=== PATIENT | female | born 1975 | race Caucasian/White ===

== ENCOUNTER 2016-08-17 09:30 | Observation (INO) | payer SELFPAY ==
[~2016-08-17] VITALS: Ht 177.8 cm; Wt 87.0 kg
[~2016-08-17 09:30] MED LIST: ACET650T24 PO; PROC-14 PO
--- OUTSIDE RECORDS SUMMARY | 2016-08-17 09:34 | XMS REPORT | Continuity of Care Document ---
Author Author [facility] Organization [facility] Address Unknown Phone Unavailable Allergies Medications Problems Procedures Results Test Result Range CHEM/HEM PROFILE-BEDSIDE - 10/27/12 15:33 POTASSIUM 4.2 mmol/L 3.5-5.3 METHOD Bedside ANION GAP 16 mmol/L 10-20 METHOD Bedside GLUCOSE 83 mg/dL 70-99 BLOOD UREA NITROGEN 8 mg/dL 7-20 CREATININE 0.9 mg/dL 0.6-1.0 HEMOGLOBIN 14.3 gm/dL 12.0-16.0 HEMATOCRIT 42.0 % 37.0-47.0 SODIUM 143 mmol/L 135-148 CHLORIDE 108 mmol/L 98-110 CARBON DIOXIDE 24 mmol/L 21-32 CALCIUM IONIZED 5.0 mg/dL 4.5-5.3 CBC W/DIFF - 10/27/12 15:35 BASOPHIL # 0.1 k/cumm 0.0-0.2 BASOPHIL % 1 % 0-1 EOSINOPHIL # 0.4 k/cumm 0.1-0.5 EOSINOPHIL % 3 % 2-4 GRANULOCYTE # 6.7 k/cumm 2.0-9.0 GRANULOCYTE % 62 % 50-75 LYMPHOCYTE # 2.9 k/cumm 1.0-4.0 LYMPHOCYTE % 26 % 20-30 MEAN CELL HGB 31.3 pg 27.0-33.0 MEAN CELL HGB CONCENTRATION 33.1 g/dL 32.0-37.0 MEAN CELL VOLUME 94.6 fl 80.0-100.0 MONOCYTE # 0.9 k/cumm 0.1-1.0 MONOCYTE % 8 % 4-6 RED BLOOD CELL 4.79 m/cumm 4.00-6.00 RED CELL DISTRIBUTION WIDTH 12.8 % 11.0- 15.6 WHITE BLOOD CELL 10.9 k/cumm 5.0-10.0 HEMOGLOBIN 15.0 gm/dL 12.0-16.0 HEMATOCRIT 45.3 % 37.0-47.0 PLATELET COUNT 272 k/cumm 150-400 HEPATIC FUNCTION PANEL - 10/27/12 15:35 BILI UNCONJUGATED 0.1 mg/dL 0.0-0.7 AST/SGOT 18 Units/L 10-37 ALT/SGPT 36 Units/L < 66 TOTAL PROTEIN 7.7 gm/dL 6.4-8.2 ALBUMIN 3.8 gm/dL 3.4-5.0 BILI TOTAL 0.2 mg/dL 0.0-1.0 ALKALINE PHOSPHATASE TOTAL 93 Units/L 50- 136 BILI CONJUGATED 0.0 mg/dL 0.0-0.3 LIPASE - 10/27/12 15:35 LIPASE 136 Units/L 73-393 URINALYSIS, ROUTINE - 10/27/12 15:45 UA LEUKOCYTE ESTERASE DIPSTICK TRACE NEGATIVE UA NITRITE DIPSTICK NEGATIVE NEGATIVE UA PROTEIN DIPSTICK NEGATIVE NEGATIVE UA GLUCOSE DIPSTICK NEGATIVE NEGATIVE UA KETONE DIPSTICK NEGATIVE NEGATIVE UA UROBILINOGEN DIPSTICK NORMAL NORMAL UA BILIRUBIN DIPSTICK NEGATIVE NEGATIVE UA BLOOD DIPSTICK NEGATIVE NEGATIVE UA COMMENT UA SPECIFIC GRAVITY 1.010 1.015-1.025 UR PH 5.0 5.0-7.0 Encounters ACCT No. Visit Date/Time Discharge Status Pt. Type Provider Facility Loc./Unit Complaint [id number] 10/27/2012 18:30:00 2012 18:30:00 DIS Outpatient Niki ESCALONA, [id number]
--- OUTSIDE RECORDS SUMMARY | 2016-08-17 09:35 | XMS REPORT | Continuity of Care Document ---
Author Author [facility] Organization [facility] Address Unknown Phone Unavailable Support Name Relationship Address Phone ALAYNA WIGGINS MD Caregiver [facility] [address] [place] [address] Unavailable LM TURCIOS MD Caregiver [address] [place], [place] [id number] BARB BECERRA Next Of Kin [address] [place] [address] Insurance Providers Payer Name Policy Number Subscriber Name Relationship Self Pay Melida Redmond 18 Self Advance Directives Directive Response Recorded Date/Time Advanced Directives Type None 05/22/14 2:00am Problems Medical Problems Problem Onset Date Status Anxiety Unknown Active Chest wall pain Unknown Active Stress reaction Unknown Active Medications Medication Dose Route Sig Days/Qty Instructions Order Date Discontinued Date Status [No Routine Meds] 01/20/08 06/18/08 Discontinued Acetaminophen 500 Mg PO NEEDED 06/29/09 10/09/09 Discontinued [Aleve] NEEDED 06/18/08 06/24/09 Discontinued Ibuprofen 200 Mg PO NEEDED 06/25/09 06/29/09 Discontinued [Tums] NEEDED 06/29/09 10/09/09 Discontinued Hydrocodone Bit/Acetaminophen 1 - 2 Tab PO Q 4-6 HOURS PRN 06/29/09 10/09/09 Discontinued Ondansetron Hcl 1 Tab PO Q 8 H PRN 06/16/09 06/24/09 Discontinued Ibuprofen 1 Tab PO NEEDED 06/29/09 10/09/09 Discontinued Ondansetron Hcl 1 Tab PO NEEDED 06/29/09 10/09/09 Discontinued Oxycodone Hcl 1 Tab PO NEEDED 06/29/09 10/09/09 Discontinued Phentermine Hcl 1 Cap PO DAILY 10/09/09 01/24/10 Discontinued [Ibuprofen] NEEDED 01/24/10 07/21/10 Discontinued [Tylenol] NEEDED 01/24/10 07/21/10 Discontinued Ibuprofen PO NEEDED 12/02/10 09/08/11 Discontinued Hydrocodone Bit/Acetaminophen PO 05/01/11 09/08/11 Discontinued [pristique] 06/12/11 09/08/11 Discontinued [no daily meds] 05/22/14 Active Social History Social History Problem Response Recorded Date/Time Chewing Tobacco Status No 05/22/2014 2:00am Hx Substance Use N NOT FOR SEVERAL YEARS 05/22/2014 2:00am Hx Alcohol Use Y VERY INFREQUENTLY 05/22/2014 2:00am Tobacco Usage smoke 05/22/2014 2:26am Query Response Start Date Stop Date Smoking Status Current every day smoker Hospital Discharge Instructions No hospital discharge instructions. Plan of Care No plan of care. Functional Status Query Response Date Recorded Physical Hygiene Self May 22, 2014 2:00am Disabilities None May 22, 2014 2:00am Devices Used None May 22, 2014 2:00am Dressing Self May 22, 2014 2:00am Ambulation Self May 22, 2014 2:00am Diet Self May 22, 2014 2:00am Mental Status Alert May 22, 2014 4:40am Disabilities None May 22, 2014 2:00am Devices Used None May 22, 2014 2:00am Physical Hygiene Self May 22, 2014 2:00am Dressing Self May 22, 2014 2:00am Ambulation Self May 22, 2014 2:00am Diet Self May 22, 2014 2:00am Allergies, Adverse Reactions, Alerts Allergen Type Severity Reaction Status Last Updated No Known Drug Allergies Allergy Unknown Active 06/03/12 Immunizations Name Given Type Hx Influenza Vaccination No Historical Hx Pneumococcal Vaccination No Historical Hx Influenza Vaccination No Historical Hx Tetanus Diptheria Y 2 YEARS AGO Historical Vital Signs Acute Vital Signs Vital Response Date/Time Temperature (Fahrenheit) 98.2 deg F (96.8 - 99.1) Temperature (Calculated Celsius) 36.21131 degrees C (36.0 - 37.3) Pulse Rate (adult) 88 bpm (60 - 100) Respiratory Rate 16 breaths/min (10 - 20) O2 Sat by Pulse Oximetry 100 % (90 - 100) Blood Pressure 102/59 mm Hg Height 5 ft 10 in Weight 259 lb Body Mass Index 37.0 kg/m^2 Results Test Source Date Result Interp. Ref. Range Comments Activated Partial Thromboplast Time December 02, 2010 11:15am 28.0 SEC N 24-36 Alanine Aminotransferase (ALT/SGPT) May 22, 2014 2:33am 33 U/L N 9- 52 Albumin May 22, 2014 2:33am 4.3 G/DL N 3.5-5.0 Albumin/Globulin Ratio May 22, 2014 2:33am 1.3 RATIO N 1.1-2.2 Alcohol, Quantitative December 02, 2010 11:15am <10 MG/DL - Alkaline Phosphatase May 22, 2014 2:33am 79 U/L N 38-126 Amylase Level June 03, 2012 2:35pm 80 U/L N 30-110 Anion Gap May 22, 2014 2:33am 12 MEQ/L N 5-15 Aspartate Amino Transf (AST/SGOT) May 22, 2014 2:33am 16 U/L N 14- 36 B-Type Natriuretic Peptide December 02, 2010 11:15am < 15 PG/ML L 15- 100 BUN/Creatinine Ratio May 22, 2014 2:33am 13 RATIO N 6-26 Band Neutrophils # November 08, 2011 2:10pm 0.2 T/MM3 - Band Neutrophils % November 08, 2011 2:10pm 2.0 % N 0-6 Basophils # (Auto) May 22, 2014 2:33am 0.1 T/MM3 N 0-0.2 Basophils # (Manual) November 08, 2011 2:10pm 0.1 T/MM3 N 0-0.2 Basophils % (Manual) November 08, 2011 2:10pm 1.0 % N 0-2 Basophils (%) (Auto) May 22, 2014 2:33am 0.7 % N 0-2 Blood Urea Nitrogen May 22, 2014 2:33am 13.0 MG/DL N 7-17 Calcium Level May 22, 2014 2:33am 9.9 MG/DL N 8.4-10.2 Calculated Osmolality May 22, 2014 2:33am 276 MOSM/KG N 261-280 Carbon Dioxide Level May 22, 2014 2:33am 24 MEQ/L N 22-30 Chemistry Specimen Hemolysis May 22, 2014 2:33am 0-25 Chlamydia trachomatis Amplified DNA June 16, 2009 10:13pm Sent out - Chloride Level May 22, 2014 2:33am 107 MEQ/L N 98-107 Cholesterol Level August 10, 2009 11:45am 211 MG/DL H 132-199 Cholesterol/HDL Ratio August 10, 2009 11:45am 5.9 RATIO H 0-4.0 Conjugated Bilirubin June 03, 2012 2:35pm 0.00 MG/DL N 0.00-0.30 Creatinine May 22, 2014 2:33am 1.0 MG/DL N 0.7-1.2 D-Dimer June 03, 2012 2:35pm < 150 NG/ML 0-230 <224 NG/ML= PRESUMPTIVE NEGATIVE FOR PE OR DVT>224 NG/ML=ADDITIONAL EVALUATION FOR PE OR DVT RECOMMENDED EKG March 01, 2009 7:54pm Complete - Eosinophils # (Auto) May 22, 2014 2:33am 0.2 T/MM3 N 0-0.5 Eosinophils # (Manual) November 08, 2011 2:10pm 0.1 T/MM3 N 0-0.5 Eosinophils % (Manual) November 08, 2011 2:10pm 1.0 % N 0-4 Eosinophils (%) (Auto) May 22, 2014 2:33am 2.2 % N 0-4 Free Thyroxine December 02, 2010 11:15am 1.01 NG/DL N 0.78-2.19 Globulin May 22, 2014 2:33am 3.4 G/DL N 2.4-3.6 Glomerular Filtration Rate Calc May 22, 2014 2:33am 63 - Glucose Level May 22, 2014 2:33am 118 MG/DL H 65-110 HDL Cholesterol Direct August 10, 2009 11:45am 36 MG/DL L 40-60 Hematocrit May 22, 2014 2:33am 45.9 % N 36-46 Hemoglobin May 22, 2014 2:33am 15.7 GM/DL N 12-16 Human Chorionic Gonadotropin, Qual May 07, 2008 12:28pm Negative - Icterus Index May 22, 2014 2:33am < 2 0-7 Immature Granulocyte # (Auto) May 22, 2014 2:33am 0.02 T/MM3 N 0.00 -0.03 Immature Granulocyte % (Auto) May 22, 2014 2:33am 0.2 % N 0.0-0.5 Influenza Type A Antigen June 12, 2011 9:35pm Negative - Negative for Flu A protein antigen. Assay sensitivity isbetween 65-83%. A negative result does not exclude influenza virus infection. "Influenza FA" may be ordered if clinical presentation warrants confirmatory testing. Influenza Type B Antigen June 12, 2011 9:35pm Negative - Negative for Flu B protein antigen. Assay sensitivity isbetween 65-83%. A negative result does not exclude influenza virus infection. "Influenza FA" may be ordered if clinical presentation warrants confirmatory testing. LDL Cholesterol, Calculated August 10, 2009 11:45am 149.0 N 66-159 Lab Scanned Report March 28, 2011 11:02am REFERENCE LAB [id number] - Lipase June 03, 2012 2:35pm 62 U/L N 23-300 Lymphocytes # (Auto) May 22, 2014 2:33am 3.6 T/MM3 N 1-4.8 Lymphocytes # (Manual) November 08, 2011 2:10pm 2.5 T/MM3 N 1-4.8 Lymphocytes % (Manual) November 08, 2011 2:10pm 26.0 % N 23-45 Lymphocytes (%) (Auto) May 22, 2014 2:33am 33.3 % N 23-45 Mean Corpuscular Hemoglobin May 22, 2014 2:33am 31.8 UUG N 26-34 Mean Corpuscular Hemoglobin Concent May 22, 2014 2:33am 34.2 GM/DL N 31-37 Mean Corpuscular Volume May 22, 2014 2:33am 93.1 UM3 N 80-100 Mean Platelet Volume May 22, 2014 2:33am 9.9 UM3 N 9.4-12.4 Monocytes # (Auto) May 22, 2014 2:33am 1.2 T/MM3 H 0-0.8 Monocytes # (Manual) November 08, 2011 2:10pm 1.1 T/MM3 H 0-0.8 Monocytes % (Manual) November 08, 2011 2:10pm 11.0 % H 0-9.0 Monocytes (%) (Auto) May 22, 2014 2:33am 11.3 % H 0-9.0 Neutrophils # (Auto) May 22, 2014 2:33am 5.6 T/MM3 N 1.8-7.7 Neutrophils # (Manual) November 08, 2011 2:10pm 5.7 T/MM3 N 1.8-7.7 Neutrophils % (Manual) November 08, 2011 2:10pm 59.0 % N 33-66 Neutrophils (%) (Auto) May 22, 2014 2:33am 52.3 % N 33-66 Platelet Count May 22, 2014 2:33am 293 T/MM3 N 130-400 Potassium Level May 22, 2014 2:33am 3.8 MEQ/L N 3.6-5 Prothromb Time International Ratio December 02, 2010 11:15am 1.01 N 0.86-1.10 THERAPUTIC RANGE=2.00-3.00 FOR ANTI-THROMBOSIS THERAPUTIC RANGE=2.50 -3.50 FOR IMPLANTED VALVE RDW Standard Deviation May 22, 2014 2:33am 41.9 FL N 36.9-50.2 Red Blood Count May 22, 2014 2:33am 4.93 M/MM3 N 4.00-5.20 Sodium Level May 22, 2014 2:33am 143 MEQ/L N 134-144 Tests Not Done June 29, 2009 3:44pm Not done - Has specimen been collected/obtained? Y Thyroid Stimulating Hormone (TSH) December 02, 2010 11:15am 2.22 MIU/L N 0.47-4.68 Total Bilirubin May 22, 2014 2:33am 0.50 MG/DL N 0.20-1.30 Total Protein May 22, 2014 2:33am 7.7 G/DL N 6.3-8.2 Triglycerides Level August 10, 2009 11:45am 130 MG/DL N 35-135 Troponin I May 22, 2014 2:33am < 0.012 ng/ml 0-0.12 Turbidity May 22, 2014 2:33am < 20 0-20 Unconjugated Bilirubin June 03, 2012 2:35pm 0.00 MG/DL N 0.00-1.10 Urine Acetaminophen Screen December 02, 2010 12:30pm Negative NG/ML - Urine Amphetamines Screen December 02, 2010 12:30pm Negative NG/ML - Urine Bacteria June 12, 2011 10:50pm Trace H - Has specimen been collected/obtained? Y Urine Barbiturates Screen December 02, 2010 12:30pm Negative NG/ML - Urine Benzodiazepines Screen December 02, 2010 12:30pm Negative NG/ML - Urine Bilirubin June 03, 2012 3:16pm Negative - Has specimen been collected/obtained? Y Urine Blood June 03, 2012 3:16pm Negative - Has specimen been collected/obtained? Y Urine Cannabinoids Screen December 02, 2010 12:30pm Negative NG/ML - Urine Cocaine Screen December 02, 2010 12:30pm Negative NG/ML - Urine Collection Type June 03, 2012 3:16pm Voided - Has specimen been collected/obtained? Y Urine Color June 03, 2012 3:16pm Yellow - Has specimen been collected/obtained? Y Urine Glucose (UA) June 03, 2012 3:16pm Negative - Has specimen been collected/obtained? Y Urine Ketones June 03, 2012 3:16pm Negative - Has specimen been collected/obtained? Y Urine Leukocyte Esterase June 03, 2012 3:16pm Negative - Has specimen been collected/obtained? Y Urine Methadone Screen December 02, 2010 12:30pm Negative NG/ML - Urine Methamphetamines Screen December 02, 2010 12:30pm Negative NG/ML - Urine Microscopic Not Indicated November 08, 2011 2:00pm Not indicated - Has specimen been collected/obtained? Y Urine Nitrite June 03, 2012 3:16pm Negative - Has specimen been collected/obtained? Y Urine Opiates Screen December 02, 2010 12:30pm Negative NG/ML - Urine Phencyclidine Screen December 02, 2010 12:30pm Negative NG/ML - Urine Protein June 03, 2012 3:16pm Negative - Has specimen been collected/obtained? Y Urine RBC June 12, 2011 10:50pm 0-1 /HPF - Has specimen been collected/obtained? Y Urine Specific [place] June 03, 2012 3:16pm 1.015 - Has specimen been collected/obtained? Y Urine Squamous Epithelial Cells June 12, 2011 10:50pm Few - Has specimen been collected/obtained? Y Urine Tricyclic Antidepressants December 02, 2010 12:30pm Negative NG/ML - Urine Turbidity June 03, 2012 3:16pm Clear - Has specimen been collected/obtained? Y Urine Urobilinogen June 03, 2012 3:16pm Normal EU/DL - Has specimen been collected/obtained? Y Urine WBC June 12, 2011 10:50pm 0-1 /HPF - Has specimen been collected/obtained? Y Urine pH June 03, 2012 3:16pm 5.0 - Has specimen been collected/ obtained? Y VLDL Cholesterol August 10, 2009 11:45am 26.0 MG/DL N 0-28 White Blood Count May 22, 2014 2:33am 10.7 T/MM3 N 4.5-11.0 Blood Culture Blood June 12, 2011 8:38pm NO GROWTH AFTER 5 DAYS Wet Prep Vagina November 08, 2011 3:40pm Procedures No known history of procedures. Encounters Encounter Location Date/Time Departed Emergency Room [facility] 05/22/14 1:59am Recent Diagnosis
--- OUTSIDE RECORDS SUMMARY | 2016-08-17 09:35 | XMS REPORT | Referral Summary ---
Author Author [facility] Organization [facility] Address Unknown Phone Unavailable Care Team Providers [employer] Name Role Phone No PCP, States Primary Care Physician [phone] Encounter VC Date(s): 04/21/16 - 04/21/16 [facility] [address] [place] [address] Discharge Diagnosis: Urinary tract infection Discharge Diagnosis: Migraine headache Discharge Disposition: 01-Home or Self Care Attending Physician: Clay Hu MD Admitting Physician: Clay Hu MD Vital Signs Most recent to 1 oldest [Reference Range]: Temperature Oral 36.8 degC [35.8-37.3 degC] (04/21/16 5:13 PM) Peripheral Pulse 62 bpm Rate [60-100 bpm] (04/21/16 5:13 PM) Respiratory Rate 20 br/min [14-20 br/min] (04/21/16 5:13 PM) Blood Pressure 128/84 mmHg [90-140/60-90 mmHg] (04/21/16 5:13 PM) SpO2 98 % (04/21/16 5:13 PM) Problem List Condition Effective Dates Status Health Status Informant Depression(Confirmed Resolved )1 gastro-esoph reflux Resolved with esophageal spasms(Confirmed) headaches - Resolved migraine(Confirmed)2 Obesity(Confirmed) Active patient Overweight(Confirmed Resolved ) 1depressive disorder, not elsewhere classified 2migraine w/aura w/o mention intractable migraine Allergies, Adverse Reactions, Alerts No Known Medication Allergies Medications Bactrim DS 800 mg-160 mg oral tablet 1 tabs, Oral, BID, X 7 days, # 14 tabs, 0 Refill(s) Start Date: 04/21/16 Stop Date: 04/28/16 Status: Ordered meloxicam 15 mg oral tablet 15 mg 1 tabs, Oral, Daily, # 30 tabs, 0 Refill(s), Pharmacy: [id number], 1 tabs Oral Daily Start Date: 02/10/15 Status: Ordered Percocet 5/325 oral tablet 1 tabs, Oral, q6hr, as needed for pain, # 15 tabs, 0 Refill(s) Start Date: 12/09/15 Status: Ordered promethazine 25 mg oral tablet 25 mg 1 tabs, Oral, q6hr, as needed for motion sickness, X 4 days, # 16 tabs, 0 Refill(s) Start Date: 04/21/16 Stop Date: 04/25/16 Status: Ordered Results Hematology Most recent to 1 oldest [Reference Range]: WBC [4.8-10.8 8.4 10*3/uL 10*3/uL] (04/21/16 8:10 PM) RBC [4.00-5.20] 4.14 (04/21/16 8:10 PM) Hgb [12.0-16.0 13.1 gm/dL gm/dL] (04/21/16 8:10 PM) Hct [37.0-47.0 %] 39.5 % (04/21/16 8:10 PM) MCV [82.0-99.0 fL] 95.4 fL (04/21/16 8:10 PM) MCH [27.0-32.0 pg] 31.6 pg (04/21/16 8:10 PM) MCHC [32.0-36.0 33.2 gm/dL gm/dL] (04/21/16 8:10 PM) RDW [11.5-14.5 %] 13.1 % (04/21/16 8:10 PM) Platelet [150-400 261 10*3/uL 10*3/uL] (04/21/16 8:10 PM) MPV [9.4-12.4 fL] 9.2 fL *LOW* (04/21/16 8:10 PM) Immature 0.2 % Granulocytes (04/21/16 8:10 PM) [0.0-1.0 %] Neutrophils [51-75 49 % %] *LOW* (04/21/16 8:10 PM) Lymphocytes [20-46 38 % %] (04/21/16 8:10 PM) Monocytes [4-11 %] 9 % (04/21/16 8:10 PM) Eosinophils [0-4 %] 3 % (04/21/16 8:10 PM) Basophils [0-2 %] 1 % (04/21/16 8:10 PM) Neutro Absolute 4.10 [1.90-7.00] (04/21/16 8:10 PM) Lymph Absolute 3.18 [0.80-3.30] (04/21/16 8:10 PM) Barron Absolute 0.77 [0.30-1.00] (04/21/16 8:10 PM) Eos Absolute 0.24 [0.00-0.50] (04/21/16 8:10 PM) Baso Absolute 0.07 [0.00-0.20] (04/21/16 8:10 PM) Nucleated RBC 0.0 /100 WBC Automated [0 /100 (04/21/16 8:10 PM) WBC] Chemistry Most recent to 1 oldest [Reference Range]: Sodium Lvl [136-144 139 mEq/L mEq/L] (04/21/16 8:10 PM) Potassium Lvl 3.5 mEq/L [3.6-5.1 mEq/L] *LOW* (04/21/16 8:10 PM) Chloride [99-109 106 mEq/L mEq/L] (04/21/16 8:10 PM) CO2 [22-32 mEq/L] 29 mEq/L (04/21/16 8:10 PM) AGAP [3-20] 4 (04/21/16 8:10 PM) BUN [4-20 mg/dL] 5 mg/dL (04/21/16 8:10 PM) Glucose Lvl [70-100 90 mg/dL mg/dL] (04/21/16 8:10 PM) Creatinine Lvl 0.78 mg/dL [0.44-1.03 mg/dL] (04/21/16 8:10 PM) eGFR [>60] >60 1 (04/21/16 8:10 PM) Calcium Lvl 9.1 mg/dL [8.6-10.0 mg/dL] (04/21/16 8:10 PM) Albumin Lvl [3.5-4.8 3.2 gm/dL gm/dL] *LOW* (04/21/16 8:10 PM) Total Protein 5.9 gm/dL [6.1-7.9 gm/dL] *LOW* (04/21/16 8:10 PM) Globulin [1.9-4.3 2.7 gm/dL gm/dL] (04/21/16 8:10 PM) ALT [14-54 U/L] 15 U/L (04/21/16 8:10 PM) AST [15-41 U/L] 12 U/L *LOW* (04/21/16 8:10 PM) Alk Phos [26-104 52 U/L U/L] (04/21/16 8:10 PM) Bili Total [0.2-1.2 0.2 mg/dL 2 mg/dL] (04/21/16 8:10 PM) 1Result Comment: Multiply eGFR results by 1.21 for race. 2Result Comment: Naproxen, specifically the metabolite O-desmethylnaproxen, may cause spurious elevation in Total Bilirubin levels. Toxicology Most recent to 1 oldest [Reference Range]: U Amphetamine Scrn Negative (04/21/16 8:10 PM) U Cocaine Scrn Negative (04/21/16 8:10 PM) U Cannab Scrn Negative (04/21/16 8:10 PM) U Opiate Scrn Negative (04/21/16 8:10 PM) U PCP Scrn Negative (04/21/16 8:10 PM) U Benzodiazepine Negative Scrn (04/21/16 8:10 PM) U Barbiturate Scrn Negative (04/21/16 8:10 PM) Methadone Lvl Negative (04/21/16 8:10 PM) Tricyclics Not Detected 1 (04/21/16 8:10 PM) 1Result Comment: Cut-off concentrations: Amphetamines: 1000 ng/mL Cocaine: 300 ng/mL Cannabinoid: 50 ng/mL Opiate: 300 ng/mL Phencyclidine (PCP): 25 ng/mL Benzodiazepine: 200 ng/mL Barbiturate: 200 ng/mL Methadone: 300 ng/mL Tricyclic: 300 ng/mL The urine drug screen assays are qualitative screens. A more specific GC/MS method must be performed to obtain a confirmed analytical result. Unconfirmed screening results must not be used for non-medical purposes(e.g. employment or legal testing) Urinalysis Most recent to 1 oldest [Reference Range]: UA Color Yellow (04/21/16 8:10 PM) UA Appear Cloudy *ABN* (04/21/16 8:10 PM) UA pH [5.0-8.0] 5.0 (04/21/16 8:10 PM) UA Leuk Est Pos 3+ [Negative] *ABN* (04/21/16 8:10 PM) UA Nitrite Positive [Negative] *ABN* (04/21/16 8:10 PM) UA Protein Negative [Negative] (04/21/16 8:10 PM) UA Glucose Negative [Negative] (04/21/16 8:10 PM) UA Ketones Negative [Negative] (04/21/16 8:10 PM) UA Urobilinogen Negative [<1.0] (04/21/16 8:10 PM) UA Bili [Negative] Negative (04/21/16 8:10 PM) UA Blood [Negative] Negative (04/21/16 8:10 PM) UA Spec Grav 1.015 [1.003-1.030] (04/21/16 8:10 PM) Type Clean Catch (04/21/16 8:10 PM) UA WBC [0-4] 20-50 *ABN* (04/21/16 8:10 PM) Epithelial Cells 0-2 (04/21/16 8:10 PM) UA Bacteria Moderate *ABN* (04/21/16 8:10 PM) UA Mucous Present (04/21/16 8:10 PM) Immunizations Given and Recorded Vaccine Date Status Refusal Reason tetanus-diphth toxoids (Td) adult/adol 03/27/03 Given Procedures Procedure Date Related Diagnosis Body Site Hysterectomy 04/03/08 Gallbladder Social History Social History Type Response Smoking Status Current every day smoker; Type: Cigarettes; Tobacco use per day: Pack Assessment and Plan No data available for this section
--- OUTSIDE RECORDS SUMMARY | 2016-08-17 09:36 | XMS REPORT | Continuity of Care Document ---
Author Author [facility] Address Unknown Phone Unavailable Support Name Relationship Address Phone CHERELLE GEORGE MD Caregiver [address] [place], [place] [address] JAMES PEDRAZA Next Of Kin [address] [place] [address] Insurance Providers Payer Name Policy Number Subscriber Name Relationship Self Pay HookMelida hartman 18 Self / Same As Patient Advance Directives Directive Response Recorded Date/Time Advanced Directives No 04/05/16 7:41pm Chief Complaint and Reason for Visit Chief Complaint Injury Reason for Visit Low back pain Problems Active Problems Medical Problem Onset Date Status Low back pain Unknown Acute Medications Current Home Medications Medication Dose Units Route Directions Days/Qty Instructions Start Date Hydrocodone Bit/Acetaminophen 1 Each 1 Each ORAL Four Times Daily as needed for Severe Pain 15 04/05/16 Social History Query Response Start Date Stop Date Smoking Status Current every day smoker Hospital Discharge Instructions No hospital discharge instructions. Plan of Care Discharge Date 04/05/16 9:43pm Disposition 01 HOME OR SELF-CARE Condition at Discharge Stable Instructions/Education Provided Low Back Pain (DC) Prescriptions See Medication Section Additional Instructions/Education OTC Ibuprofen, dose per bottle, every 6 to 8 hours with food as needed, as main pain med. Prescription pain med as Dispensed / Rx'd, as needed for severe pain. Ice for the first 48 hours, then limited heat, 30 min up to four times a day. Recommend rest in a recliner for about 3 days, to reduce tension on the sciatic nerve. Follow up with PCP in about 3 days. Return to ER as needed, especially for recurrent severe pain, if unable to walk, or you develop urinary or bowel incontinence. Some of your test results may not be complete prior to your leaving the Emergency Department. The Emergency Department is not authorized to give test results over the phone. Please contact the doctor's office listed in this packet of information for your final results. Follow up with your primary care physician or return to the Emergency Department for worsening or worrisome symptoms. * Emergency Department phone number: [phone], x [phone]* MEDICAL RECORD If you need copies of your X-rays, call [phone] x [phone]. If you need copies of your medical record, including lab results, a signed authorization for release of records will be required. A telephone call for release of Health Information is not allowed. BILLING Billing can sometimes be confusing and frustrating. To help avoid confusion in the future, please take a moment to acquaint yourself with the billing parties for services. SERVICE BILLING CONSTITUTION PARTY Emergency Room Services [facility] Physician Services [facility] X-rays [facility] Patients will receive bills for services from the appropriate provider. If you have any questions about your [facility] bill, our staff will be happy to assist you. Please call [phone], and ask for the billing department. THANK YOU for choosing [facility] as your emergency care provider! Care Plan and Goals ~~Discharge Care Plan~~ Problem: Back pain Goal: Decreased level of pain. Return to usual activities. Instructions: Take medication(s) as directed; follow up with your primary care physician as directed; follow patient home care instructions. Apply ice or heat to site for comfort. Functional Status No functional status results. Allergies, Adverse Reactions, Alerts No known allergies. Immunizations No immunization records. Vital Signs Acute Vital Signs Vital Response Date/Time Temperature (Fahrenheit) 97.7 04/05/2016 9:50pm Pulse 52 bpm 04/05/2016 9:50pm Respirations 18 04/05/2016 9:50pm Height 5 ft 11 in Weight 198 lb Body Mass Index 27.0 kg/m^2 Results No known relevant diagnostic tests, laboratory data and/or discharge summary. Procedures No known history of procedures. Encounters Encounter Location Arrival/Admit Date Discharge/Depart Date Attending Provider Departed Emergency Room [facility] 04/05/16 7:33pm 04/05/16 9:43pm CHERELLE GEORGE MD Recent Diagnosis
--- OUTSIDE RECORDS SUMMARY | 2016-08-17 09:37 | XMS REPORT | Continuity of Care Document ---
Author Author [facility] Organization [facility] Address Unknown Phone Unavailable Support Name Relationship Address Phone ALAYNA WIGGINS MD Caregiver [address] [place] [address] Unavailable ERNESTO LEIVA DO Caregiver [address] [place] [address] Unavailable BARB BECERRA Next Of Kin [address] [place] [address] Insurance Providers Guarantor MonsterMel[employer] Address [address] [place] [address] Email [email or web address] Payer Self Pay Subscriber's Name Melida Redmond Relationship 18 Self Chief Complaint and Reason for Visit Chief Complaint General Reason for Visit Malaise Headache [id number] Problems Active Problems Medical Problem Onset Date Status Anxiety Unknown Acute Bradycardia with 31 - 40 beats per minute Unknown Acute Chest wall pain Unknown Acute GERD (gastroesophageal reflux disease) Unknown Acute Major depressive disorder Unknown Acute Musculoskeletal chest pain Unknown Acute Stress due to family tension Unknown Acute Stress reaction Unknown Acute Past Problems Medical Problem Onset Date Cellulitis Unknown Cephalgia Unknown Cervical strain Unknown Choking episode Unknown Head lice Unknown Headache Unknown Malaise Unknown Migraine Unknown Patient left without being seen Unknown Right-sided chest pain Unknown Thoracic back pain Unknown Viral syndrome Unknown Medications Current Home Medications Medication Dose Units Route Directions Days Qty Instructions Start Date Acetaminophen (Acetaminophen 8 Hour) 650 Mg Tablet.er 2 Tab Oral As Needed as needed for Pain 01/04/16 Prochlorperazine Maleate (Compazine) 10 Mg Tablet 10 Mg Oral Four Times Daily 30 Tablet 01/04/16 Past Home Medications Medication Directions Ordered Status Acetaminophen (Tylenol Extra Strength) 500 Mg Tablet, 500 Mg Oral As Needed 06/29/09 Discontinued Aleve , As Needed 06/18/08 Discontinued Folic Acid/Mv,Fe,Other Min (One Daily For Women Tablet) 1 Each Tablet, 1 Tab Oral Daily 07/14/15 Discontinued Hydrocodone Bit/Acetaminophen (Lortab 7.5) 1 Udtab Tablet, Oral 05/01/11 Discontinued Hydrocodone Bit/Acetaminophen (Lortab 5) 1 Tab Tablet, 1 - 2 Tab Oral Q 4-6 Hours Prn 06/29/09 Discontinued Ibuprofen 200 Mg Tablet, Oral As Needed 12/02/10 Discontinued Ibuprofen , As Needed 01/24/10 Discontinued Ibuprofen 800 Mg Tablet, 1 Tab Oral As Needed 06/29/09 Discontinued Ibuprofen 200 Mg Tablet, 200 Mg Oral As Needed 06/25/09 Discontinued No Routine Meds , 01/20/08 Discontinued Ondansetron Hcl 4 Mg Tablet, 1 Tab Oral As Needed 06/29/09 Discontinued Ondansetron Hcl (Zofran) 4 Mg Tablet, 1 Tab Oral Q 8 H Prn 06/16/09 Discontinued Oxycodone Hcl Unknown Strength Tablet, Unknown Dose Oral Twice A Day as needed for Pain 07/14/15 Discontinued Oxycodone Hcl 5 Mg Capsule, 1 Tab Oral As Needed 06/29/09 Discontinued Phentermine Hcl 37.5 Mg Capsule, 1 Cap Oral Daily 10/09/09 Discontinued Pristique , 06/12/11 Discontinued Tums , As Needed 06/29/09 Discontinued Tylenol , As Needed 01/24/10 Discontinued Social History Social History Problem Response Recorded Date/Time Onset Date Status Chewing Tobacco Status No 01/04/2016 10:38pm Not Applicable Not Applicable Hx Substance Use No 01/04/2016 10:38pm Not Applicable Not Applicable Hx Alcohol Use Y "HARDLY EVER" 01/04/2016 10:38pm Not Applicable Not Applicable Tobacco Usage smoke 09/14/2015 2:16pm Not Applicable Not Applicable Query Response Start Date Stop Date Smoking Status Current every day smoker Hospital Discharge Instructions No hospital discharge instructions. Plan of Care Discharge Date 01/04/16 11:07pm Disposition 01 DISCHARGED HOME, SELF-CARE Condition at Discharge Improved Instructions/Education Provided DI for Viral Syndrome Prescriptions See Medication Section Referrals ERNESTO LEIVA DO Address: [address] [place] [phone] Additional Instructions/Education Take ibuprofen up to 800 mg 3 times daily for baseline pain control and fever control Take Compazine 10 mg one tablet up to 4 times daily as needed for nausea, cramps, or headache. Care Plan and Goals Physician Care Plan Problem: Viral syndrome Goal: Follow up with primary care provider Instructions: Take medications and follow care plan as discussed/written Take ibuprofen up to 800 mg 3 times daily for baseline pain control and fever control Take Compazine 10 mg one tablet up to 4 times daily as needed for nausea, cramps, or headache. Functional Status No functional status results. Allergies, Adverse Reactions, Alerts Allergen Type Severity Reaction Status Last Updated No Known Drug Allergies Allergy Unknown Active 01/04/16 Immunizations Query Response on File Recorded Date/Time Hx Influenza Vaccination No 11/27/14 7:15pm Hx Pneumococcal Vaccination No 11/27/14 7:15pm Hx Influenza Vaccination No 11/27/14 7:15pm Hx Tetanus Diptheria Y 2 YEARS AGO 11/27/14 7:15pm DTaP Vaccine History NO SKIN DISRUPTIONS 10/22/15 1:02pm Influenza Vaccine Hx NONE 01/04/16 10:38pm Vital Signs Acute Vital Signs Vital Response Date/Time Temperature (Fahrenheit) 99.9 deg F (96.8 - 99.1) 01/04/2016 11:07pm Temperature (Calculated Celsius) 37.38891 degrees C (36.0 - 37.3) 01/04/2016 11:07pm Pulse Rate (adult) 62 bpm (60 - 100) 01/04/2016 11:07pm Respiratory Rate 12 breaths/min (10 - 20) 01/04/2016 11:07pm O2 Sat by Pulse Oximetry 97 % (90 - 100) 01/04/2016 11:07pm Blood Pressure 101/58 mm Hg 01/04/2016 11:07pm Height (Feet) 5 feet 01/04/2016 9:20pm Height (Inches) 10.00 inches 01/04/2016 9:20pm Weight (Kilograms) 93.700 kg 01/04/2016 9:20pm Body Mass Index (BMI) 29.0 01/04/2016 9:20pm Results Laboratory Results Test Name Result Units Flags Reference Collection Date/Time Result Date/ Time Comments Troponin I < 0.012 ng/ml 0-0.12 10/22/2015 12:47pm 10/22/2015 1:15pm Troponin values with a difference of 55% increase from orginal troponin value represent a true biological DELTA value. (%increase Calc=Orginal Troponin value, divided by subsequent Troponin value, multiplied by 100) White Blood Count 9.4 T/MM3 4.5-11.0 11/29/2015 3:0111/29/2015 3: 07pm Red Blood Count 4.58 M/MM3 4.00-5.20 11/29/2015 3:01pm 11/29/2015 3: 07pm Hemoglobin 14.4 GM/DL 12-16 11/29/2015 3:01pm 11/29/2015 3:07pm Hematocrit 42.8 % 36-46 11/29/2015 3:01pm 11/29/2015 3:07pm Mean Corpuscular Volume 93.4 UM3 80-100 11/29/2015 3:01pm 11/29/2015 3: 07pm Mean Corpuscular Hemoglobin 31.4 UUG 26-34 11/29/2015 3:01pm 2015 3:07pm Mean Corpuscular Hemoglobin Concent 33.6 GM/DL 31-37 11/29/2015 3:01pm 11/29/2015 3:07pm RDW Standard Deviation 42.6 FL 36.9-50.2 11/29/2015 3:01pm 11/29/2015 3 :07pm Platelet Count 234 T/MM3 130-400 11/29/2015 3:01pm 11/29/2015 3:07pm Mean Platelet Volume 9.5 UM3 9.4-12.4 11/29/2015 3:01pm 11/29/2015 3: 07pm Neutrophils (%) (Auto) 70.7 % H 33-66 11/29/2015 3:01pm 11/29/2015 3: 07pm Lymphocytes (%) (Auto) 20.1 % L 23-45 11/29/2015 3:01pm 11/29/2015 3: 07pm Monocytes (%) (Auto) 6.9 % 0-9.0 11/29/2015 3:01pm 11/29/2015 3:07pm Eosinophils (%) (Auto) 1.7 % 0-4 11/29/2015 3:01pm 11/29/2015 3:07pm Basophils (%) (Auto) 0.4 % 0-2 11/29/2015 3:01pm 11/29/2015 3:07pm Immature Granulocyte % (Auto) 0.2 % 0.0-0.5 11/29/2015 3:01pm 2015 3:07pm Absolute Neutrophils (auto) 6.6 T/MM3 1.8-7.7 11/29/2015 3:01pm 2015 3:07pm Absolute Lymphocytes (auto) 1.9 T/MM3 1-4.8 11/29/2015 3:01pm 2015 3:07pm Absolute Monocytes (auto) 0.7 T/MM3 0-0.8 11/29/2015 3:01pm 11/29/2015 3:07pm Absolute Eosinophils (auto) 0.2 T/MM3 0-0.5 11/29/2015 3:01pm 2015 3:07pm Absolute Basophils (auto) 0.0 T/MM3 0-0.2 11/29/2015 3:01pm 11/29/2015 3:07pm Absolute Immature Granulocyte (auto 0.02 T/MM3 0.00-0.03 11/29/2015 3: 01pm 11/29/2015 3:07pm Icterus Index < 2 0-7 11/29/2015 3:01pm 11/29/2015 3:21pm Chemistry Specimen Hemolysis < 15 0-25 11/29/2015 3:01pm 11/29/2015 3 :21pm 0-25: Specimen Exhibited No Hemolysis. Turbidity < 20 0-20 11/29/2015 3:01pm 11/29/2015 3:21pm Sodium Level 145 MEQ/L H 134-144 11/29/2015 3:01pm 11/29/2015 3:21pm Potassium Level 3.4 MEQ/L L 3.6-5 11/29/2015 3:01pm 11/29/2015 3:21pm Chloride Level 110 MEQ/L H 98-107 11/29/2015 3:01pm 11/29/2015 3:21pm Carbon Dioxide Level 24 MEQ/L 22-30 11/29/2015 3:01pm 11/29/2015 3: 21pm Anion Gap 11 MEQ/L 5-15 11/29/2015 3:01pm 11/29/2015 3:21pm Blood Urea Nitrogen 8.0 MG/DL 7-17 11/29/2015 3:01pm 11/29/2015 3:21pm Creatinine 0.8 MG/DL 0.7-1.2 11/29/2015 3:01pm 11/29/2015 3:21pm BUN/Creatinine Ratio 10 RATIO 6-26 11/29/2015 3:01pm 11/29/2015 3:21pm Glomerular Filtration Rate Calc 80 11/29/2015 3:01pm 11/29/2015 3: 21pm Glucose Level 93 MG/DL 65-110 11/29/2015 3:01pm 11/29/2015 3:21pm Calculated Osmolality 277 MOSM/KG 261-280 11/29/2015 3:01pm 11/29/2015 3:21pm Calcium Level 9.7 MG/DL 8.4-10.2 11/29/2015 3:01pm 11/29/2015 3:21pm Total Bilirubin 1.00 MG/DL 0.20-1.30 11/29/2015 3:01pm 11/29/2015 3: 21pm Alkaline Phosphatase 67 U/L 38-126 11/29/2015 3:01pm 11/29/2015 3:21pm Total Protein 7.2 G/DL 6.3-8.2 11/29/2015 3:01pm 11/29/2015 3:21pm Albumin 4.0 G/DL 3.5-5.0 11/29/2015 3:01pm 11/29/2015 3:21pm Globulin 3.2 G/DL 2.4-3.6 11/29/2015 3:01pm 11/29/2015 3:21pm Albumin/Globulin Ratio 1.3 RATIO 1.1-2.2 11/29/2015 3:01pm 11/29/2015 3 :21pm Aspartate Amino Transf (AST/SGOT) 16 U/L 14-36 11/29/2015 3:01pm 2015 3:21pm Alanine Aminotransferase (ALT/SGPT) 20 U/L 9-52 11/29/2015 3:01pm 11/28 3:21pm Acetaminophen Level < 10 UG/ML L 10-30 11/29/2015 3:01pm 11/29/2015 3: 21pm TOXIC <4 HR POST INGESTION: >150 MG/L; TOXIC <12 HR POST INGESTION: >50 MG/L Salicylates Level < 1.0 MG/DL L 2-20 11/29/2015 3:01pm 11/29/2015 3: 21pm Alcohol, Quantitative <10 MG/DL <10 11/29/2015 3:01pm 11/29/2015 3: 21pm Procedures Procedure Status Date Provider(s) THER/PROPH/DIAG INJ SC/IM Completed 10/14/15 THER/PROPH/DIAG INJ SC/IM Completed 10/22/15 THER/PROPH/DIAG INJ IV PUSH Completed 11/29/15 TX/PRO/DX INJ NEW DRUG ADDON Completed 11/29/15 TX/PRO/DX INJ NEW DRUG ADDON Completed 11/29/15 TX/PRO/DX INJ NEW DRUG ADDON Completed 11/29/15 TX/PRO/DX INJ SAME DRUG HEAD OPERATOR Completed 11/29/15 Encounters Encounter Location Arrival/Admit Date Discharge/Depart Date Attending Provider Departed Emergency Room [facility] 01/04/16 9:13pm 01/04/16 11: 07pm ALAYNA WIGGINS MD Departed Emergency Room [facility] 12/09/15 5:59pm 12/09/15 6: 15pm ALAYNA WIGGINS MD Departed Emergency Room [facility] 11/29/15 1:51pm 11/29/15 5: 05pm DENISSE HAWKINS MD Departed Emergency Room [facility] 10/22/15 12:15pm 10/22/15 2: 13pm FILIBERTO SIMON DO Departed Emergency Room [facility] 10/14/15 9:47am 10/14/15 10: 53am DENISSE HAWKINS MD Recent Diagnosis
[2016-08-17] MEDS ORDERED: NORMAL SALINE 1,000 ML IV ONE (10:07)
--- NOTE | 2016-08-17 10:09 | NUR ---
DR PAZ IN
--- NOTE | 2016-08-17 10:09 | NUR ---
PAIN IMPROVED TO 5/10. HAS RODRIGUEZ
--- OUTSIDE RECORDS SUMMARY | 2016-08-17 10:13 | XMS REPORT | Continuity of Care Document ---
Author Author [facility] Organization [facility] Address Unknown Phone Unavailable Allergies Medications Problems [...] Status Pt. Type Provider Facility Loc./Unit Complaint [id number] 10/27/2012 18:30:00 2012 18:30:00 DIS Outpatient Niki ESCALONA, [id number]
[2016-08-17 10:14] LABS: BASOPHILS % (AUTO) 0.6 % (0-2); EOSINOPHILS # (AUTO) 0.2 T/MM3 (0-0.5); EOSINOPHILS % (AUTO) 3.4 % (0-4); HCT - HEMATOCRIT 44.7 % (36-46); HGB - HEMOGLOBIN 14.9 GM/DL (12-16); IMMATURE GRANULOCYTE # (AUTO) 0.01 T/MM3 (0.00-0.03); IMMATURE GRANULOCYTE % (AUTO) 0.1 % (0.0-0.5); LYMPHOCYTES # (AUTO) 2.2 T/MM3 (1-4.8); LYMPHOCYTES % (AUTO) 31.2 % (23-45); MEAN CORPUSCULAR HGB CONC(MCHC 33.3 GM/DL (31-37); MEAN CORPUSCULAR VOLUME 96.1 UM3 (80-100); MEAN PLATELET VOLUME 9.9 UM3 (9.4-12.4); MONOCYTES # (AUTO) 0.5 T/MM3 (0-0.8); MONOCYTES % (AUTO) 7.6 % (0-9.0); NEUTROPHILS % (AUTO) 57.1 % (33-66); RED BLOOD COUNT 4.65 M/MM3 (4.00-5.20)
--- OUTSIDE RECORDS SUMMARY | 2016-08-17 10:14 | XMS REPORT | Continuity of Care Document ---
Author Author [facility] Organization [facility] Address Unknown Phone Unavailable Support Name Relationship Address Phone ALAYNA WIGGINS MD Caregiver [facility] [address] [place] [address] Unavailable LM TURCIOS MD Caregiver [address] [place], [place] [id number] BARB BECERRA Next Of Kin [address] [place] [address] Insurance Providers Payer Name Policy Number Subscriber [...] F (96.8 - 99.1) Temperature (Calculated Celsius) 36.26863 degrees C (36.0 - 37.3) Pulse Rate [...] Report March 28, 2011 11:02am [facility] [id number] - Lipase June 03, 2012 2:35pm 62 [...] Has specimen been collected/obtained? Y Urine Specific [place] June 03, 2012 3:16pm 1.015 - Has [...] Encounters Encounter Location Date/Time Departed Emergency Room [facility] 05/22/14 1:59am Recent Diagnosis
[2016-08-17] MEDS ORDERED: ASPIRIN 81 MG CHEWABLE TABLET PO ONE (10:15)
[2016-08-17] MEDS ORDERED: NITROGLYCERIN 0.4 MG SUBLINGUAL TABLET SL PRN (10:15)
[2016-08-17 10:19] LABS: PROBNP 167 PG/ML (0-175)
[2016-08-17] MEDS ORDERED: ACET-62 PO (10:19)
[2016-08-17] MEDS ORDERED: HYDR50TA48 PO (10:21)
[2016-08-17 10:22] LABS: ALBUMIN 4.5 G/DL (3.5-5.0); ALBUMIN/GLOBULIN RATIO 1.5 RATIO (1.1-2.2); ALKALINE PHOSPHATASE 59 U/L (38-126); ALT (SGPT) 37 U/L (9-52); ANION GAP 13 MEQ/L (5-15); AST (SGOT) 18 U/L (14-36); BUN/CREATININE RATIO 12 RATIO (6-26); CALCIUM 9.6 MG/DL (8.4-10.2); CHLORIDE 106 MEQ/L (98-107); CO2 - CARBON DIOXIDE 27 MEQ/L (22-30); CREATININE 0.9 MG/DL (0.7-1.2); GLOMERULAR FILTRATION RATE 70; GLUCOSE 69 MG/DL (65-110); POTASSIUM 3.8 MEQ/L (3.6-5); SODIUM 146 MEQ/L (134-144); TOTAL PROTEIN 7.6 G/DL (6.3-8.2)
--- NOTE | 2016-08-17 10:23 | ERPDOC ---
Departure Impression Impression Referrals: ERNESTO LEIVA DO (Family) Mental Status: Alert, Oriented HPI - Cardiac General Chief Complaint: Chest Pain Stated Complaint: CHEST PAIN Time Seen by Provider: 10:07 HPI - Cardiac General Initial Comments 41-year-old female presents with chest pain. Patient has frequent chest pain, she has a lot of stress in her life. She was to have gone with Dr. Mercer to do a cardiac stress test, but did not follow-up that she is uninsured. Her 2 sons are going to detention, she finally got custody of her daughter back and has a lot of stress which is unresolved still. She's had some nausea no vomiting. She normally takes hydroxyzine for anxiety but is out. Allergies: Coded Allergies: No Known Drug Allergies (Verified Allergy, Unknown, 08/17/16) Past History Past Medical History Metabolic: hypercholesterolemia GI: GERD, gallbladder disease Female: UTI, endometriosis Neurological: migraines Psychological: anxiety, depression, suicide attempt Surgical History General: gallbladder Reproductive/: , hysterectomy Family History Family PMH: FOUND: [place], cancer, depression, diabetes, hypertension Vaccines Hx Influenza Vaccination: No Hx Pneumococcal Vaccination: No Hx Tetanus Diptheria: Yes (2 YEARS AGO) Social History Smoking Status: Current every day smoker # of Packs/Tins per Day: 1 Substance Use Type: does not use Record Review Pertinent history updated: Yes Review of Systems Cardiovascular Cardiac: see HPI Rhythm/Rate: see HPI GI Upper Abdomen: see HPI All other Systems All Other Systems: Reviewed and Negative Physical Exam General General Nourishment: well nourished, well developed, appears stated age Distress Description Anxiety Vitals and Pain First Documented Vital Signs Date Time Temp Pulse Resp B/P Pulse Ox O2 Delivery O2 Flow Rate FiO2 08/17/16 09:34 97.6 46 16 136/80 100 Room Air Weight: Kilograms: 86.500 Height (feet): 5 Height (inches): 11.00 Triage Pain Scale: Normal Exams: Head: Normocephalic w/o trauma Chest/Resp: Clear all dong, with good airflow, and symmetry bilaterally CV: Regular rate and rhythm, without murmur or gallop, Pulses 2+ all extremities, capillary refill, <2 seconds all ext., no pedal edema noted Abdomen: Bowel sounds positive, soft, non-tender, non-distended, no hepatosplenomegaly, masses or bruits noted Neurologic: Patient is alert, and oriented, cranial nerves, motor/sensory/ cerebellar, exams w/o gross deficits, to observation Psychiatric: Patient exhibits, appropriate attention, emotion and affect Differential Diagnoses Considering: Acute TN, Anxiety/Panic, Pericarditis, Pulmonary Edema, Pulmonary Embolus, Ventricular Tachycardia Progress Results/Orders Orders Procedure Category Date Status Time Cbc W/Auto LAB 08/17/16 Complete Diff-Reflex Manual 10:07 Cmp - Comprehensive LAB 08/17/16 In Process Metabolic 10:07 Probnp LAB 08/17/16 In Process 10:07 Troponin I W LAB 08/17/16 In Process Hemolysis Index 10:07 INR LAB 08/17/16 In Process 10:07 Ua, Dip Wreflex LAB 08/17/16 Logged [facility] [employer] 10:07 D-Dimer LAB 08/17/16 In Process 10:07 EKG EKG 08/17/16 Logged 10:07 Chest, Pa & Lateral RAD 08/17/16 Logged 10:07 Iv Lock (Ed Only) EDM 08/17/16 Transmitted 10:07 Normal Saline (Normal PHA 08/17/16 In Process Saline Iv) 10:07 Aspirin (Asa) PHA 08/17/16 Complete 10:15 Nitroglycerin PHA 08/17/16 In Process (Nitrostat) 10:15 Hydroxyzine (Atarax) PHA 08/17/16 Transmitted 10:30 Lab Results Laboratory Tests Test 08/17/16 09:50 White Blood Count 7.0T/MM3 Red Blood Count 4.65M/MM3 Hemoglobin 14.9GM/DL Hematocrit 44.7% Mean Corpuscular Volume 96.1UM3 Mean Corpuscular Hemoglobin 32.0UUG Mean Corpuscular Hemoglobin Concent 33.3GM/DL RDW Standard Deviation 41.2FL Platelet Count 258T/MM3 Mean Platelet Volume 9.9UM3 Immature Granulocyte % (Auto) 0.1% Neutrophils (%) (Auto) 57.1% Lymphocytes (%) (Auto) 31.2% Monocytes (%) (Auto) 7.6% Eosinophils (%) (Auto) 3.4% Basophils (%) (Auto) 0.6% Absolute Immature Granulocyte (auto 0.01T/MM3 Absolute Neutrophils (auto) 4.0T/MM3 Absolute Lymphocytes (auto) 2.2T/MM3 Absolute Monocytes (auto) 0.5T/MM3 Absolute Eosinophils (auto) 0.2T/MM3 Absolute Basophils (auto) 0.0T/MM3 Prothromb Time International Ratio Pending D-Dimer Pending Turbidity Pending Sodium Level Pending Potassium Level Pending Chloride Level Pending Carbon Dioxide Level Pending Anion Gap Pending Blood Urea Nitrogen Pending Creatinine Pending Glomerular Filtration Rate Calc Pending BUN/Creatinine Ratio Pending Glucose Level Pending Calculated Osmolality Pending Calcium Level Pending Total Bilirubin Pending Icterus Index Pending Aspartate Amino Transf (AST/SGOT) Pending Alanine Aminotransferase (ALT/SGPT) Pending Alkaline Phosphatase Pending Troponin I Pending [id number] Natriuretic Peptide Pending Total Protein Pending Albumin Pending Globulin Pending Albumin/Globulin Ratio Pending Chemistry Specimen Hemolysis Pending Medications Current ED Medications Sodium Chloride (Normal Saline IV) 1,000 ml @ 1,000 mls/hr Q1H ONCE IV ; Start 08/17/16 at 10:07; Stop 08/17/16 at 11:06 Aspirin (ASA) 324 mg O ONCE PO ; Start 08/17/16 at 10:15; Stop 08/17/16 at 10: 16; Status DC Nitroglycerin (Nitrostat) 0.4 mg Q5MIN PRN SL CHEST PAIN; Start 08/17/16 at 10: 15 FABIOLA PAZ MD August 17, 2016 10:23
[2016-08-17 10:28] LABS: INR 0.89 (0.77-1.03); PROTHROMBIN TIME 9.8 SEC (9.48-12.52)
[2016-08-17 10:47] LABS: BLOOD, URINE NEGATIVE (NEGATIVE); COLOR,URINE YELLOW (YELLOW); LEUKOCYTE ESTERASE ,URINE TRACE (NEGATIVE); NITRITE,URINE NEGATIVE (NEGATIVE); UROBILINOGEN,URINE 0.2 EU/DL (NORMAL)
--- NOTE | 2016-08-17 10:56 | DI ---
INDICATION: ITS.REASON: Intermittent right chest pain for two weeks PROCEDURE: CHEST 2-VIEWS UPRIGHT (PA \T\ LAT) Encounter: Initial COMPARISON: October 22, 2015 FINDINGS: The lungs are clear without evidence of focal abnormal airspace opacity. There is no pleural effusion or pneumothorax. The heart size, mediastinal contours and pulmonary vascularity are within normal limits. There is no significant skeletal abnormality. IMPRESSION: No acute cardiopulmonary disease. .
--- NOTE | 2016-08-17 11:00 | NUR ---
DR PAZ IN
--- NOTE | 2016-08-17 11:14 | NUR ---
ACTIVITY UP TO COMMODE
--- OUTSIDE RECORDS SUMMARY | 2016-08-17 11:14 | XMS REPORT | Continuity of Care Document ---
Author Author [facility] Organization [facility] Address Unknown Phone Unavailable Allergies [...] Status Pt. Type Provider Facility Loc./Unit Complaint [id number] 10/27/2012 18:30:00 2012 18:30:00 DIS Outpatient Niki ESCALONA, [id number]
--- OUTSIDE RECORDS SUMMARY | 2016-08-17 11:15 | XMS REPORT | Continuity of Care Document ---
Author Author [facility] Organization [facility] Address Unknown Phone Unavailable Support Name Relationship Address Phone ALAYNA WIGGINS MD Caregiver [facility] [address] [place] [address] Unavailable LM TURCIOS MD Caregiver [address] [place], [place] [id number] BARB BECERRA Next Of Kin [address] [facility] [address] [place] [address] Insurance Providers Payer Name Policy Number Subscriber [...] F (96.8 - 99.1) Temperature (Calculated Celsius) 36.36696 degrees C (36.0 - 37.3) Pulse Rate [...] Report March 28, 2011 11:02am [facility] [id number] - Lipase June 03, 2012 2:35pm 62 [...] Has specimen been collected/obtained? Y Urine Specific [place] June 03, 2012 3:16pm 1.015 - Has [...] Encounters Encounter Location Date/Time Departed Emergency Room [facility] 05/22/14 1:59am Recent Diagnosis
[2016-08-17] MEDS ORDERED: PRN ORDERS MC (11:30)
--- NOTE | 2016-08-17 11:35 | NUR ---
Admit Patient admitted to medical room 153. Patient alert and oriented. HR on tele is 36-40's. Patient steady on feet. Complains of chest pain that comes and goes. Patient under stress with family situation.
--- NOTE | 2016-08-17 11:35 | NUR ---
TRANSPORT PER CART ON TELEMETRY TO [facility] 153 ACCOMPANIED BY RN. CARE ASSUMED BY JOHN WILSON. PT CONTINUES TO HAVE SHE LOW 38. PT HAS CP & RODRIGUEZ
[2016-08-17 11:38] VITALS: Ht 177.8 cm; Wt 87.0 kg
[2016-08-17 11:44] VITALS: BP 140/81; PULSE 42; RESP 17; TEMP 96.2; O2SAT 100
[2016-08-17 11:52] VITALS: PULSE 42
--- NOTE | 2016-08-17 13:52 | HPPDOC ---
JAMES MENSAH WIRE CUTTER 08/17/16 1216: HPI - Adult Date DATE: 08/17/16 TIME: 12:11 General Date of Admission Date of Admission: August 17, 2016 at 11:09 Chief Complaint: chest pain History of Present Illness Carey is a 41-year-old female who is known to Dr. Hoskins who was last seen in May of 2015 in the clinic for chest pain and dyspnea at which time she was instructed to have a transthoracic echocardiogram and a stress test using Jez protocol but did not follow-up as she is uninsured. Today she presented to the ED with chest pain. She reports frequent chest pain, and she has a lot of stress in her life. Her 2 sons are going to retirement, she finally got custody of her daughter back and has a lot of stress which is unresolved still. She normally takes hydroxyzine for anxiety but is out. She's had some nausea no vomiting. She is examined in her room on Medical. She reports pain in the center of her chest that is stabbing and goes into her back. The pain lasts only 2-3 minutes and then goes away but comes back. She denies tightness, dyspnea or sweating. She reports feeling chilled and having vomiting today. She reports headache which came on following Nitro. She reports being able to do her strenuous work without these symptoms but reports frequent lightheadedness when working. Past Medical History Past Medical History Metabolic: hypercholesterolemia GI: GERD, gallbladder disease Female: UTI, endometriosis Neurological: migraines Psychological: anxiety, depression, suicide attempt Surgical History General: gallbladder Reproductive/: , hysterectomy Current Medications Home Meds Reported Medications Hydroxyzine HCl (Hydroxyzine HCl) Unknown Strength Tablet, PO TID 08/17/16 Acetaminophen (Acetaminophen) 500 Mg Tablet, 1000 MG PO Q8H Y for PAIN 08/17/16 Allergies: Coded Allergies: No Known Drug Allergies (Verified Allergy, Unknown, 08/17/16) Family History FOUND: CAD (maternal grandmother ), CVA (maternal grandmother), [place], cancer, depression, diabetes, hypertension Vaccines NONE NONE No NO SKIN DISRUPTIONS Social History Smoking Status: Current every day smoker # of Packs/Tins per Day: 1 Substance Use Type: does not use Alcohol Intake: occasionally Marital Status: Single Advance Directives: No DPOA for Healthcare Only Review of Systems Constitutional: REPORTS: chills, dizziness, DENIES: fever, syncope Eyes Vision: DENIES: vision changes ENMT Hearing: DENIES: tinnitus Balance: DENIES: vertigo Mouth/Throat: DENIES: sore throat Cardiovascular chest pain, dyspnea on exertion Rhythm/Rate: DENIES: irregular beat, palpitations Vascular: DENIES: pedal edema Pulmonary Respiratory: DENIES: cough, sputum GI Upper Abdomen: vomiting, DENIES: nausea Lower Abdomen: constipation, DENIES: blood in stool, diarrhea General: DENIES: dysuria Integumentary Skin: DENIES: rash, sores Neurological General: headache, DENIES: numbness, seizures, syncope, vertigo, weakness All Other Systems All Other Systems: Reviewed (remainder of 10-point ROS Neg.) Physical Exam General General Nourishment: well nourished, well developed, apparent age Vital Signs Vital Signs Date Time Temp Pulse Resp B/P Pulse Ox O2 Delivery O2 Flow Rate FiO2 08/17/16 11:52 42 08/17/16 11:44 96.2 17 140/81 100 Room Air Height (Feet): 5 Height (Inches): 10.00 Telemetry Rhythm: Sinus Bradycardia ENMT Brief: FOUND: mucosa moist Neck Brief: NOT FOUND: JVD, carotid bruits Respiratory Brief: FOUND: clear all dong, equal bilaterally, NOT FOUND: rales , wheezes Cardiovascular (brief) Cardiac Brief: FOUND: regular rhythm, NOT FOUND: click, gallop, murmur, pedal edema, regular rate (bradycardic) Abdomen (brief) Abdominal Brief: FOUND: BS normo active x4, soft Integumentary (brief) Integumentary Brief: FOUND: dry, pink, warm Neurologic RN Documented GCS Eye Opening: Verbal: Motor: Total: Psychiatric (brief) FOUND: alert, normal affect, oriented Laboratory Laboratory Tests Test 08/17/16 09:50 08/17/16 10:23 White Blood Count 7.0T/MM3 Red Blood Count 4.65M/MM3 Hemoglobin 14.9GM/DL Hematocrit 44.7% Mean Corpuscular Volume 96.1UM3 Mean Corpuscular Hemoglobin 32.0UUG Mean Corpuscular Hemoglobin Concent 33.3GM/DL RDW Standard Deviation 41.2FL Platelet Count 258T/MM3 Mean Platelet Volume 9.9UM3 Immature Granulocyte % (Auto) 0.1% Neutrophils (%) (Auto) 57.1% Lymphocytes (%) (Auto) 31.2% Monocytes (%) (Auto) 7.6% Eosinophils (%) (Auto) 3.4% Basophils (%) (Auto) 0.6% Absolute Immature Granulocyte (auto 0.01T/MM3 Absolute Neutrophils (auto) 4.0T/MM3 Absolute Lymphocytes (auto) 2.2T/MM3 Absolute Monocytes (auto) 0.5T/MM3 Absolute Eosinophils (auto) 0.2T/MM3 Absolute Basophils (auto) 0.0T/MM3 Prothromb Time International Ratio 0.89 D-Dimer < 150NG/ML Turbidity < 20 Sodium Level 146MEQ/L Potassium Level 3.8MEQ/L Chloride Level 106MEQ/L Carbon Dioxide Level 27MEQ/L Anion Gap 13MEQ/L Blood Urea Nitrogen 11.0MG/DL Creatinine 0.9MG/DL Glomerular Filtration Rate Calc 70 BUN/Creatinine Ratio 12RATIO Glucose Level 69MG/DL Calculated Osmolality 278MOSM/KG Calcium Level 9.6MG/DL Magnesium Level 2.0MG/DL Total Bilirubin 0.40MG/DL Icterus Index < 2 Aspartate Amino Transf (AST/SGOT) 18U/L Alanine Aminotransferase (ALT/SGPT) 37U/L Alkaline Phosphatase 59U/L Troponin I < 0.012ng/ml PW-Muz-I-Type Natriuretic Peptide 167PG/ML Total Protein 7.6G/DL Albumin 4.5G/DL Globulin 3.1G/DL Albumin/Globulin Ratio 1.5RATIO Thyroid Stimulating Hormone (TSH) 2.42MIU/L Chemistry Specimen Hemolysis < 15 Urine Collection Type Voided-not cc-midstr Urine Color Yellow Urine Turbidity Clear Urine pH 5.5 Urine Specific [place] <=1.005 Urine Protein Negative Urine Glucose (UA) Negative Urine Ketones Negative Urine Blood Negative Urine Nitrite Negative Urine Bilirubin Negative Urine Urobilinogen 0.2EU/DL Urine Leukocyte Esterase Trace Urinalysis Comment Microscopic not ind. Laboratory Tests Test 08/17/16 09:50 08/17/16 10:23 White Blood Count 7.0T/MM3 Red Blood Count 4.65M/MM3 Hemoglobin 14.9GM/DL Hematocrit 44.7% Mean Corpuscular Volume 96.1UM3 Mean Corpuscular Hemoglobin 32.0UUG Mean Corpuscular Hemoglobin Concent 33.3GM/DL RDW Standard Deviation 41.2FL Platelet Count 258T/MM3 Mean Platelet Volume 9.9UM3 Immature Granulocyte % (Auto) 0.1% Neutrophils (%) (Auto) 57.1% Lymphocytes (%) (Auto) 31.2% Monocytes (%) (Auto) 7.6% Eosinophils (%) (Auto) 3.4% Basophils (%) (Auto) 0.6% Absolute Immature Granulocyte (auto 0.01T/MM3 Absolute Neutrophils (auto) 4.0T/MM3 Absolute Lymphocytes (auto) 2.2T/MM3 Absolute Monocytes (auto) 0.5T/MM3 Absolute Eosinophils (auto) 0.2T/MM3 Absolute Basophils (auto) 0.0T/MM3 Prothromb Time International Ratio 0.89 D-Dimer < 150NG/ML Turbidity < 20 Sodium Level 146MEQ/L Potassium Level 3.8MEQ/L Chloride Level 106MEQ/L Carbon Dioxide Level 27MEQ/L Anion Gap 13MEQ/L Blood Urea Nitrogen 11.0MG/DL Creatinine 0.9MG/DL Glomerular Filtration Rate Calc 70 BUN/Creatinine Ratio 12RATIO Glucose Level 69MG/DL Calculated Osmolality 278MOSM/KG Calcium Level 9.6MG/DL Magnesium Level 2.0MG/DL Total Bilirubin 0.40MG/DL Icterus Index < 2 Aspartate Amino Transf (AST/SGOT) 18U/L Alanine Aminotransferase (ALT/SGPT) 37U/L Alkaline Phosphatase 59U/L Troponin I < 0.012ng/ml WX-Lbw-E-Type Natriuretic Peptide 167PG/ML Total Protein 7.6G/DL Albumin 4.5G/DL Globulin 3.1G/DL Albumin/Globulin Ratio 1.5RATIO Thyroid Stimulating Hormone (TSH) 2.42MIU/L Chemistry Specimen Hemolysis < 15 Urine Collection Type Voided-not cc-midstr Urine Color Yellow Urine Turbidity Clear Urine pH 5.5 Urine Specific [place] <=1.005 Urine Protein Negative Urine Glucose (UA) Negative Urine Ketones Negative Urine Blood Negative Urine Nitrite Negative Urine Bilirubin Negative Urine Urobilinogen 0.2EU/DL Urine Leukocyte Esterase Trace Urinalysis Comment Microscopic not ind. EKG sinus Bradycardia Radiology DATE OF EXAM: 08/17/16 ORDERING DOCTOR: FABIOLA PAZ MD TYPE OF EXAM: CHEST, PA & LATERAL REASON FOR EXAM: this pain INDICATION: ITS.REASON: Intermittent right chest pain for two weeks PROCEDURE: CHEST 2-VIEWS UPRIGHT (PA \T\ LAT) Encounter: Initial COMPARISON: October 22, 2015 FINDINGS: The lungs are clear without evidence of focal abnormal airspace opacity. There is no pleural effusion or pneumothorax. The heart size, mediastinal contours and pulmonary vascularity are within normal limits. There is no significant skeletal abnormality. IMPRESSION: No acute cardiopulmonary disease. Assessment & Plan Problems: (1) Chest wall pain Status: Acute Assessment & Plan: Sharp stabbing pain in the center of her chest that is nonreproducible and lasts minutes at a time, radiates to back. EKG is unremarkable, Trend serial troponin levels and repeat EKG in am (2) Bradycardia Status: Acute Assessment & Plan: HR mostly 40s, some in the 50s. States has dizziness when working hard. Obtain echo to look for structural disease. (3) Anxiety Status: Acute Assessment & Plan: Admits has very stressful home life, she is out of usual antianxiety medication and is unable to be seen by [facility] due to outstanding debt Plan/Intensity of Service Chest pain: Sharp stabbing pain in the center of her chest that is nonreproducible and lasts minutes at a time, radiates to back. EKG is unremarkable, Trend serial troponin levels and repeat EKG in am. Bradycardia: HR mostly 40s, some in the 50s. States has dizziness when working hard. Obtain echo to look for structural disease. Code Status Full Code Hospital Course Summary Disclaimer The hospital course summary below is not to be considered part of the above Progress Note. BRETT HOSKINS MD 08/19/16 1553: Past Medical History Current Medications Home Meds Reported Medications Hydroxyzine HCl (Hydroxyzine HCl) Unknown Strength Tablet, PO TID 08/17/16 Acetaminophen (Acetaminophen) 500 Mg Tablet, 1000 MG PO Q8H Y for PAIN 08/17/16 Allergies: Coded Allergies: No Known Drug Allergies (Verified Allergy, Unknown, 08/17/16) Assessment & Plan Hospital Course Summary Hospital Course Summary After examining the patient I agree with the above assessment. I am involved in the formulation of the patient's plan of care. JAMES MENSAH APRN August 17, 2016 12:16 BRETT HOSKINS MD August 19, 2016 15:53
[2016-08-17] MEDS ORDERED: ONDANSETRON 4mg/2ml INJECTION IV PRN (14:15)
[2016-08-17] MEDS ORDERED: MORPHINE SULFATE 4 MG SYRINGE IV PRN (14:15)
[2016-08-17 15:27] VITALS: BP 109/60; PULSE 62; RESP 18; TEMP 97.1; O2SAT 99
--- NOTE | 2016-08-17 18:27 | NUR ---
Status Patient up with stand by assist. HR has been in the 50's more so then early when HR was more in the 40's. Good appetite.
--- NOTE | 2016-08-17 21:00 | NUR ---
comfort visits pleasantly earlier in the evening, now dozes to sleep. HR 40 at rest. Arouses easily, denies chest pain or pressure
[2016-08-18] VITALS: BP 92/64; PULSE 47; RESP 14; TEMP 96.6; O2SAT 97
--- NOTE | 2016-08-18 05:12 | NUR ---
rest sleeps for long intervals, resp. unlabored. Arouses easily, denies pain. HR about 40 as sleeps
[2016-08-18 08:00] VITALS: BP 102/56; PULSE 45; RESP 16; TEMP 97.1
--- NOTE | 2016-08-18 08:00 | NUR ---
RECEIVED REPORT PATIENT IS STILL ASLEEP. NO DISTRESS NOTED. CONTINUES TO RUN SINUS SHE ON TELEMETRY.
--- NOTE | 2016-08-18 09:40 | NUR ---
CM CM IN TO VISIT PATIENT, SHE IS A&O. NO FAMILY IS PRESENT. PATIENT PLANS TO DISCHARGE HOME, DENIES ANY DISCHARGE NEEDS. CM CONTACT INFORMATION PROVIDED. ONLY CONCERN WAS THAT SHE DID NOT HAVE ANY INSURANCE, I TOLD HER THAT I HAD EMAILED FINANCIAL DEPT ([employer]ARGES) AND THEY MAY COME SPEAK TO HER REGARDING WHAT TO EXPECT. LACE SCORE IS 2, NO FURTHER FOLLOW UP IS INDICATED. Addendum: 08/18/16 at 0941 by BARRY FAM RN Amended: Links added.
--- NOTE | 2016-08-18 09:56 | ECHOF ---
DATE OF PROCEDURE August 17, 2016 This is a two-dimensional echo with spectral Doppler, color-flow and M-mode. It was obtained in a patient with chest pain and bradycardia. Left atrial dimension is normal. Left ventricle end-diastolic dimension is normal. Left ventricle wall thickness is normal. LV systolic function is normal with ejection fraction of 65%. Right atrium is normal. Right ventricle is normal. Aortic root dimension is normal. Mitral, aortic, tricuspid, and pulmonary valves are morphologically normal with trace of mitral and trace of pulmonary insufficiency. There is no pericardial effusion. IMPRESSION 1. Essentially normal echo with trivial mitral and pulmonary insufficiency. MTDD
[2016-08-18 11:29] VITALS: BP_SYST 108; BP_SYST 113; BP_SYST 118; BP_DIAS 65; BP_DIAS 79; PULSE 43; PULSE 46; PULSE 57
--- NOTE | 2016-08-18 12:15 | NUR ---
DISCHARGED PATIENT DISCHARGE AND MEDICATION INSTRUCTION ARE GIVEN. PATIENT IS IN A HURRY TO LEAVE. PATIENT IS DISCHARGED. PATIENT AMBULATES TO THE FRONT DOOR WHERE HER RIDE WAS AWAITING. DENIES DIZZINESS AT DISMISSAL.
--- NOTE | 2016-08-22 11:01 | DSPDOC ---
JAMES MENSAH PUBLIC RELATIONS DIRECTOR 08/22/16 1057: General Date Date DATE: 08/22/16 TIME: 10:54 Attending Physician Hood Hoskins MD Admitting Physician Hood Hoskins MD Consulting Physician Admitting Diagnosis bradycardia Discharge Diagnosis bradycardia Laboratory Laboratory Tests Test 08/17/16 09:50 08/17/16 10:23 White Blood Count 7.0T/MM3 Red Blood Count 4.65M/MM3 Hemoglobin 14.9GM/DL Hematocrit 44.7% Mean Corpuscular Volume 96.1UM3 Mean Corpuscular Hemoglobin 32.0UUG Mean Corpuscular Hemoglobin Concent 33.3GM/DL RDW Standard Deviation 41.2FL Platelet Count 258T/MM3 Mean Platelet Volume 9.9UM3 Immature Granulocyte % (Auto) 0.1% Neutrophils (%) (Auto) 57.1% Lymphocytes (%) (Auto) 31.2% Monocytes (%) (Auto) 7.6% Eosinophils (%) (Auto) 3.4% Basophils (%) (Auto) 0.6% Absolute Immature Granulocyte (auto 0.01T/MM3 Absolute Neutrophils (auto) 4.0T/MM3 Absolute Lymphocytes (auto) 2.2T/MM3 Absolute Monocytes (auto) 0.5T/MM3 Absolute Eosinophils (auto) 0.2T/MM3 Absolute Basophils (auto) 0.0T/MM3 Prothromb Time International Ratio 0.89 D-Dimer < 150NG/ML Turbidity < 20 Sodium Level 146MEQ/L Potassium Level 3.8MEQ/L Chloride Level 106MEQ/L Carbon Dioxide Level 27MEQ/L Anion Gap 13MEQ/L Blood Urea Nitrogen 11.0MG/DL Creatinine 0.9MG/DL Glomerular Filtration Rate Calc 70 BUN/Creatinine Ratio 12RATIO Glucose Level 69MG/DL Calculated Osmolality 278MOSM/KG Calcium Level 9.6MG/DL Magnesium Level 2.0MG/DL Total Bilirubin 0.40MG/DL Icterus Index < 2 Aspartate Amino Transf (AST/SGOT) 18U/L Alanine Aminotransferase (ALT/SGPT) 37U/L Alkaline Phosphatase 59U/L Troponin I < 0.012ng/ml HO-Ccg-E-Type Natriuretic Peptide 167PG/ML Total Protein 7.6G/DL Albumin 4.5G/DL Globulin 3.1G/DL Albumin/Globulin Ratio 1.5RATIO Thyroid Stimulating Hormone (TSH) 2.42MIU/L Chemistry Specimen Hemolysis < 15 Urine Collection Type Voided-not cc-midstr Urine Color Yellow Urine Turbidity Clear Urine pH 5.5 Urine Specific [place] <=1.005 Urine Protein Negative Urine Glucose (UA) Negative Urine Ketones Negative Urine Blood Negative Urine Nitrite Negative Urine Bilirubin Negative Urine Urobilinogen 0.2EU/DL Urine Leukocyte Esterase Trace Urinalysis Comment Microscopic not ind. Laboratory Tests Test 08/17/16 09:50 08/17/16 10:23 White Blood Count 7.0T/MM3 Red Blood Count 4.65M/MM3 Hemoglobin 14.9GM/DL Hematocrit 44.7% Mean Corpuscular Volume 96.1UM3 Mean Corpuscular Hemoglobin 32.0UUG Mean Corpuscular Hemoglobin Concent 33.3GM/DL RDW Standard Deviation 41.2FL Platelet Count 258T/MM3 Mean Platelet Volume 9.9UM3 Immature Granulocyte % (Auto) 0.1% Neutrophils (%) (Auto) 57.1% Lymphocytes (%) (Auto) 31.2% Monocytes (%) (Auto) 7.6% Eosinophils (%) (Auto) 3.4% Basophils (%) (Auto) 0.6% Absolute Immature Granulocyte (auto 0.01T/MM3 Absolute Neutrophils (auto) 4.0T/MM3 Absolute Lymphocytes (auto) 2.2T/MM3 Absolute Monocytes (auto) 0.5T/MM3 Absolute Eosinophils (auto) 0.2T/MM3 Absolute Basophils (auto) 0.0T/MM3 Prothromb Time International Ratio 0.89 D-Dimer < 150NG/ML Turbidity < 20 Sodium Level 146MEQ/L Potassium Level 3.8MEQ/L Chloride Level 106MEQ/L Carbon Dioxide Level 27MEQ/L Anion Gap 13MEQ/L Blood Urea Nitrogen 11.0MG/DL Creatinine 0.9MG/DL Glomerular Filtration Rate Calc 70 BUN/Creatinine Ratio 12RATIO Glucose Level 69MG/DL Calculated Osmolality 278MOSM/KG Calcium Level 9.6MG/DL Magnesium Level 2.0MG/DL Total Bilirubin 0.40MG/DL Icterus Index < 2 Aspartate Amino Transf (AST/SGOT) 18U/L Alanine Aminotransferase (ALT/SGPT) 37U/L Alkaline Phosphatase 59U/L Troponin I < 0.012ng/ml TL-Uth-Q-Type Natriuretic Peptide 167PG/ML Total Protein 7.6G/DL Albumin 4.5G/DL Globulin 3.1G/DL Albumin/Globulin Ratio 1.5RATIO Thyroid Stimulating Hormone (TSH) 2.42MIU/L Chemistry Specimen Hemolysis < 15 Urine Collection Type Voided-not cc-midstr Urine Color Yellow Urine Turbidity Clear Urine pH 5.5 Urine Specific [place] <=1.005 Urine Protein Negative Urine Glucose (UA) Negative Urine Ketones Negative Urine Blood Negative Urine Nitrite Negative Urine Bilirubin Negative Urine Urobilinogen 0.2EU/DL Urine Leukocyte Esterase Trace Urinalysis Comment Microscopic not ind. Radiology DATE OF PROCEDURE August 17, 2016 This is a two-dimensional echo with spectral Doppler, color-flow and M-mode. It was obtained in a patient with chest pain and bradycardia. Left atrial dimension is normal. Left ventricle end-diastolic dimension is normal. Left ventricle wall thickness is normal. LV systolic function is normal with ejection fraction of 65%. Right atrium is normal. Right ventricle is normal. Aortic root dimension is normal. Mitral, aortic, tricuspid, and pulmonary valves are morphologically normal with trace of mitral and trace of pulmonary insufficiency. There is no pericardial effusion. IMPRESSION 1. Essentially normal echo with trivial mitral and pulmonary insufficiency. DATE OF EXAM: 08/17/16 ORDERING DOCTOR: FABIOLA PAZ MD TYPE OF EXAM: CHEST, PA & LATERAL REASON FOR EXAM: this pain INDICATION: ITS.REASON: Intermittent right chest pain for two weeks PROCEDURE: CHEST 2-VIEWS UPRIGHT (PA \T\ LAT) Encounter: Initial COMPARISON: October 22, 2015 FINDINGS: The lungs are clear without evidence of focal abnormal airspace opacity. There is no pleural effusion or pneumothorax. The heart size, mediastinal contours and pulmonary vascularity are within normal limits. There is no significant skeletal abnormality. IMPRESSION: No acute cardiopulmonary disease. History of Present Illness Carey is a 41-year-old female who is known to Dr. Hoskins who was last seen in May of 2015 in the clinic for chest pain and dyspnea at which time she was instructed to have a transthoracic echocardiogram and a stress test using Jez protocol but did not follow-up as she is uninsured. Today she presented to the ED with chest pain. She reports frequent chest pain, and she has a lot of stress in her life. Her 2 sons are going to custodial, she finally got custody of her daughter back and has a lot of stress which is unresolved still. She normally takes hydroxyzine for anxiety but is out. She's had some nausea no vomiting. She is examined in her room on Medical. She reports pain in the center of her chest that is stabbing and goes into her back. The pain lasts only 2-3 minutes and then goes away but comes back. She denies tightness, dyspnea or sweating. She reports feeling chilled and having vomiting today. She reports headache which came on following Nitro. She reports being able to do her strenuous work without these symptoms but reports frequent lightheadedness when working. Objective Vital Signs Telemetry Rhythm: Sinus Bradycardia Height (Feet): 5 Height (Inches): 10.00 Weight (Kilograms): 87.000 General Alert, Orientated x 3, Cooperative, No Acute Distress ENMT (Brief) mucosa moist Neck (Brief) NOT FOUND: JVD, carotid bruits Respiratory (Brief) clear all dong, equal bilaterally, NOT FOUND: rales, wheezes Cardiovascular (Brief) regular rhythm, NOT FOUND: click, gallop, murmur, pedal edema, regular rate ( bradycardia), rub Abdomen (Brief) BS normo active x4, soft Integumentary (Brief) dry, pink, warm Psychiatric (Brief) alert, attentive, oriented EKG Sinus Bradycardia Hospital Course Chest pain: Sharp stabbing pain in the center of her chest that is nonreproducible and lasts minutes at a time, radiates to back. EKG is unremarkable, Trend serial troponin levels and repeat EKG in am. Bradycardia: HR mostly 40s, some in the 50s. States has dizziness when working hard. Obtain echo to look for structural disease. Problems: (1) Chest wall pain Status: Acute (2) Bradycardia Status: Acute (3) Anxiety Status: Acute Code Status Full Code Home Meds Reported Medications Hydroxyzine HCl (Hydroxyzine HCl) Unknown Strength Tablet, PO TID 08/17/16 Acetaminophen (Acetaminophen) 500 Mg Tablet, 1000 MG PO Q8H Y for PAIN 08/17/16 Discharge Disposition discharge to home in the care of herself in good and stable condition HOOD HOSKINS MD 08/23/16 1024: Hospital Course Home Meds Reported Medications Hydroxyzine HCl (Hydroxyzine HCl) Unknown Strength Tablet, PO TID 08/17/16 Acetaminophen (Acetaminophen) 500 Mg Tablet, 1000 MG PO Q8H Y for PAIN 08/17/16 Discharge Disposition After examining the patient I agree with the above assessment. I am involved in the formulation of the patient's plan of care. JAMES MENSAH APRN August 22, 2016 10:57 HOOD HOSKINS MD August 23, 2016 10:24
--- NOTE | 2016-08-23 14:49 | NUR ---
ATTEMPTED [facility] FOLLOW UP PHONE CALL #1, LEFT VOICE MESSAGE TO RETURN CALL TO CM.
== END 2016-08-18 12:44 | disposition home or self-care (01) ==
LOC: ED 09:30 → EDHOLD 11:09 → MED 11:35
PROVIDERS: ADMIT Internal Medicine Cardiovascular Disease; ATTEND Internal Medicine Cardiovascular Disease
DX: R00.1 Bradycardia, unspecified (principal); R07.89 Other chest pain; F41.9 Anxiety disorder, unspecified; Z63.79 Other stressful life events affecting family and household; Z59.8 Other problems related to housing and economic circumstances; E78.00 Pure hypercholesterolemia, unspecified; K21.9 Gastro-esophageal reflux disease without esophagitis; F32.9 Major depressive disorder, single episode, unspecified; G43.909 Migraine, unspecified, not intractable, without status migrainosus; Z91.5 Personal history of self-harm; F17.210 Nicotine dependence, cigarettes, uncomplicated; Z87.440 Personal history of urinary (tract) infections
CPT/HCPCS: 36415; 80053; 81003; 83735; 83880; 84443; 84484; 85025; 85379; 85610; 93005; 93306; 96360; 99218

== ENCOUNTER 2017-11-14 08:46 | Observation (INO) ==
--- NOTE | 2017-11-14 09:29 | Emergency Department Report ---
Dizziness HPI - General Chief Complaint: Dizziness Stated Complaint: dizzy,vomitting,lightheaded,tired Time Seen by Provider: 11/14/17 09:29 Source: patient Mode of arrival: ambulatory Limitations: no limitations - History of Present Illness HPI Narrative: Patient is a 42-year-old female presents the ER for evaluation of dizziness, lightheadedness, bradycardia. Patient states she's been feeling terrible for the last 3 days, can't really specify symptoms except sleeping all the time, mild nausea and not really eating or drinking. Patient has no fevers no chills. Patient today decided to present to the ER for evaluation - Related Data Home Medications Medication Instructions Recorded Confirmed Acetaminophen [Acetaminophen Extra 1,000 mg PO Q6H PRN 11/14/17 11/14/17 Strength] Aspirin [Adult Aspirin] 81 mg PO DAILY PRN 11/14/17 11/14/17 Allergies Allergy/AdvReac Type Severity Reaction Status Date / Time No Known Drug Allergies Allergy Unknown Verified 11/14/17 15:55 Review of Systems Constitutional: Reports: weakness. Denies: fever, chills Eyes: Denies: eye pain, eye discharge, vision change ENT: Denies: ear pain, throat pain, dental pain Cardiovascular: Denies: chest pain, palpitations, dyspnea on exertion Respiratory: Denies: cough, dyspnea, wheezes Gastrointestinal: Denies: abdominal pain, nausea, vomiting Genitourinary: Denies: dysuria, frequency Integumentary: Denies: change in hair, change in nails Neurological: Reports: weakness. Denies: headache, numbness, paresthesias, confusion, abnormal gait Psychiatric: Denies: anxiety, depression Endocrine: Reports: fatigue. Denies: heat or cold intolerance Hematological/Lymphatic: Denies: easy bleeding Allergic/Immunologic: Denies: facial swelling PFSH Patient Stated Medical History Angina Yes Myocardial Infarction Yes Bronchitis Yes Hx Kidney Stones Yes Hx Urinary Tract Infection Yes Depression Yes Post Traumatic Stress Disorder Yes - Social History Smoking status: Current every day smoker Substance use type: does not use Alcohol intake frequency: does not drink Physical Exam - Limitations Limitations: no limitations - General General appearance: alert, in no apparent distress - Head Head exam: normocephalic, normal inspection - Eye Eye exam: Present: PERRL, EOMI - ENT ENT exam: Present: normal oropharynx, mucous membranes moist, TM's normal bilaterally - Neck Neck exam: Present: full ROM, trachea midline. Absent: tenderness - Chest Chest inspection: Present: symmetric chest wall rise. Absent: tenderness - Respiratory Respiratory exam: Present: normal lung sounds bilaterally. Absent: respiratory distress, wheezes, stridor - Cardiovascular Cardiovascular exam: Present: normal rhythm, bradycardia, normal heart sounds - Abdominal Exam Abdominal exam: Present: soft, normal bowel sounds. Absent: distention, tenderness - Extremities Exam Extremities exam: Present: normal inspection, full ROM - Back Exam Back exam: Present: normal inspection, full ROM - Skin Skin exam: Present: warm, dry - Neurological Exam Neurological exam: Present: alert, oriented X3 - Psychiatric Psychiatric exam: Present: normal affect, normal mood Course Vital Signs Temperature 98.3 F 11/14/17 08:48 Pulse Rate 48 L 11/14/17 08:48 Respiratory Rate 18 11/14/17 08:48 Blood Pressure 135/65 11/14/17 08:48 Pulse Oximetry 100 11/14/17 08:48 Temperature 98.2 F 11/15/17 08:00 Pulse Rate 52 L 11/15/17 08:00 Respiratory Rate 18 11/15/17 08:00 Blood Pressure 93/58 11/15/17 08:00 Pulse Oximetry 96 11/15/17 08:00 Dizziness - MDM Narrative Medical decision making narrative: Patient having episodes where heart rate drops into the 30s, did discuss with cardiology. They will admit patient observation status for further evaluation Patient decided she does not want to stay, explain wrist the patient, she will leave AGAINST MEDICAL ADVICE - Medical Records Attestation: I reviewed the patient's medical records. - Lab Data Attestation: I reviewed the patient's lab results. Result diagrams: 11/15/17 06:18 11/15/17 06:18 Lab Results 11/14/17 11/14/17 11/14/17 Range/Units 09:47 09:47 09:58 WBC 6.8 (4.5-11.0) T/MM3 RBC 4.26 (4.00-5.20) M/MM3 Hgb 13.5 (12-16) GM/DL Hct 40.6 (36-46) % MCV 95.3 (80-100) UM3 MCH 31.7 (26-34) UUG MCHC 33.3 (31-37) GM/DL RDW Std Deviation 41.9 (36.9-50.2) FL Plt Count 257 (130-400) T/MM3 MPV 9.2 L (9.4-12.4) UM3 Neutrophils % (Manual) 46.0 (33-66) % Band Neutrophils % 1.0 (0-6) % Lymphocytes % (Manual) 40.0 (23-45) % Monocytes % (Manual) 7.0 (0-9.0) % Eosinophils % (Manual) 5.0 H (0-4) % Basophils % (Manual) 1.0 (0-2) % Neutrophils # (Manual) 3.1 (1.8-7.7) T/MM3 Band Neutrophils # 0.1 T/MM3 Lymphocytes # (Manual) 2.7 (1-4.8) T/MM3 Monocytes # (Manual) 0.5 (0-0.8) T/MM3 Eosinophils # (Manual) 0.3 (0-0.5) T/MM3 Basophils # (Manual) 0.1 (0-0.2) T/MM3 RBC Morph Comment Normal Turbidity (0-20) Sodium (136-146) MEQ/L Potassium (3.6-5) MEQ/L Chloride (98-107) MEQ/L Carbon Dioxide (22-30) MEQ/L Anion Gap (5-15) meq/L BUN (7-17) MG/DL Creatinine (0.7-1.2) mg/dL Estimated Creat Clear (>50) mL/min GFR Calculation (>60) mL/min BUN/Creatinine Ratio (6-26) RATIO Glucose (65-110) MG/DL Calculated Osmolality (261-280) MOSM/KG Calcium (8.4-10.2) MG/DL Magnesium (1.6-2.3) MG/DL Total Bilirubin (0.20-1.30) MG/DL Icterus Index (0-7) AST (14-36) U/L ALT (1-35) U/L Alkaline Phosphatase (38-126) U/L Troponin I (0-0.12) ng/ml Total Protein (6.3-8.2) g/dL Albumin (3.5-5.0) g/dL Globulin (2.4-3.6) G/DL Albumin/Globulin Ratio (1.1-2.2) RATIO TSH 2.01 (0.47-4.68) mIU/L Specimen Hemolysis (0-25) Ur Collection Type Urine Color (YELLOW) Urine Clarity Urine pH (5.0-8.0) Ur Specific Willow (1.015-1.025) Urine Protein (NEGATIVE) Urine Glucose (UA) (NEGATIVE) Urine Ketones (NEGATIVE) Urine Occult Blood (NEGATIVE) Urine Nitrate (NEGATIVE) Urine Bilirubin (NEGATIVE) Urine Urobilinogen (NORMAL) EU/DL Ur Leukocyte Esterase (NEGATIVE) Urinalysis Comment Monoscreen Negative (Negative) 11/14/17 11/14/17 11/14/17 Range/Units 09:58 09:58 10:28 WBC (4.5-11.0) T/MM3 RBC (4.00-5.20) M/MM3 Hgb (12-16) GM/DL Hct (36-46) % MCV (80-100) UM3 MCH (26-34) UUG MCHC (31-37) GM/DL RDW Std Deviation (36.9-50.2) FL Plt Count (130-400) T/MM3 MPV (9.4-12.4) UM3 Neutrophils % (Manual) (33-66) % Band Neutrophils % (0-6) % Lymphocytes % (Manual) (23-45) % Monocytes % (Manual) (0-9.0) % Eosinophils % (Manual) (0-4) % Basophils % (Manual) (0-2) % Neutrophils # (Manual) (1.8-7.7) T/MM3 Band Neutrophils # T/MM3 Lymphocytes # (Manual) (1-4.8) T/MM3 Monocytes # (Manual) (0-0.8) T/MM3 Eosinophils # (Manual) (0-0.5) T/MM3 Basophils # (Manual) (0-0.2) T/MM3 RBC Morph Comment Turbidity < 20 (0-20) Sodium 147 H (136-146) MEQ/L Potassium 3.7 (3.6-5) MEQ/L Chloride 106 (98-107) MEQ/L Carbon Dioxide 30 (22-30) MEQ/L Anion Gap 11 (5-15) meq/L BUN 11.0 (7-17) MG/DL Creatinine 0.9 (0.7-1.2) mg/dL Estimated Creat Clear 98 (>50) mL/min GFR Calculation 69 (>60) mL/min BUN/Creatinine Ratio 12 (6-26) RATIO Glucose 72 (65-110) MG/DL Calculated Osmolality 280 (261-280) MOSM/KG Calcium 9.9 (8.4-10.2) MG/DL Magnesium 2.0 (1.6-2.3) MG/DL Total Bilirubin 0.20 (0.20-1.30) MG/DL Icterus Index < 2 (0-7) AST 14 (14-36) U/L ALT 12 (1-35) U/L Alkaline Phosphatase 51 (38-126) U/L Troponin I < 0.012 (0-0.12) ng/ml Total Protein 7.0 (6.3-8.2) g/dL Albumin 4.2 (3.5-5.0) g/dL Globulin 2.8 (2.4-3.6) G/DL Albumin/Globulin Ratio 1.5 (1.1-2.2) RATIO TSH (0.47-4.68) mIU/L Specimen Hemolysis < 15 (0-25) Ur Collection Type Urine, void-cc/notcc Urine Color Yellow (YELLOW) Urine Clarity Clear Urine pH 6.0 (5.0-8.0) Ur Specific Willow 1.010 L (1.015-1.025) Urine Protein Negative (NEGATIVE) Urine Glucose (UA) Negative (NEGATIVE) Urine Ketones Negative (NEGATIVE) Urine Occult Blood Negative (NEGATIVE) Urine Nitrate Negative (NEGATIVE) Urine Bilirubin Negative (NEGATIVE) Urine Urobilinogen 0.2 (NORMAL) EU/DL Ur Leukocyte Esterase Negative (NEGATIVE) Urinalysis Comment Microscopic not ind. Monoscreen (Negative) - EKG Data EKG #1 EKG attestation: Yes: I reviewed and interpreted this EKG. EKG shows normal: sinus rhythm Rate: bradycardia Rhythm: NSR Interpretation: no acute changes Disposition Clinical Impression: Symptomatic bradycardia Disposition: 07 Against Medical Advice Condition: Stable - Seen By: physician
[2017-11-14] MEDS ORDERED: SALINE FLUSH 10ml SYRINGE IVF PRN (09:34)
[2017-11-14] MEDS ORDERED: NS 1,000 ML IV ONE (09:34)
--- OUTSIDE RECORDS SUMMARY | 2017-11-14 09:37 | External Medical Summary | Continuity of Care Document ---
:1975 Author Organization [facility] Allergies Active Description Code Type Severity Reaction Onset Reported/ Identified Relationship Clinical to Patient Status Yes No Known NKMA N/A N/A 10/15/2013 Medication Allergies Yes No Known NKMA N/A N/A 10/15/2013 Medication Allergies Yes No Known F0019 Drug Unknown N/A 04/05/2016 Drug 15503 Aller Allergies gy Yes No Known No Aller Unknown N/A 08/17/2016 Drug Known gy Allergies Drug Aller gies Medications Medication Packaging Start Date Stop Date Route Dosage Sig MG <ORC.7.1>10 <RXE.1.2>Acetami 00</ORC.7.1 <ORC.7.2>Q8H</ nophen</RXE.1.2> ><ORC.7.1/> ORC.7.2><ORC.7 <RXE.1.2>Hydroxy .2>TID</ORC.7. zine 2> HCl</RXE.1.2> 1 caps 10/15/2013 Oral 500 mg 1 cephalexin(Kefle 4 caps, Oral, x 500 mg oral q8hr, 30 caps capsule) 1 tabs 10/18/2013 Oral 4 mg 1 ondansetron(Zofr 4 tabs, Oral, an 4 mg oral q8hr, 10 tabs, tablet) PRN: as needed for nausea/vomitin g 1 tabs 02/10/2014 Oral 15 mg 1 meloxicam(meloxi 4 tabs, Oral, cam 15 mg oral Daily, 30 tabs tablet) 1 tabs 02/10/2014 Oral 10 mg 1 cyclobenzaprine( 4 tabs, Oral, cyclobenzaprine Bedtime (once 10 mg oral a day), 30 tablet) tabs, PRN: as needed for spasm 1 tabs 03/04/2014 Oral 50 mg 1 traMADol(Ultram 5 tabs, Oral, 50 mg oral q6hr, 30 tabs, tablet) PRN: as needed for pain 03/04/2014 predniSONE(predn 4 See iSONE 10 mg oral Instructions, tablet) 5 tabs daily for 3 days 4 tabs daily for 3 days 3 tabs daily for 3 days 2 tab daily for 3 days one tab daily for 3 days, 45 tabs 1 tabs 03/10/2014 Oral 15 mg 1 meloxicam(meloxi 5 tabs, Oral, cam 15 mg oral Daily, 30 tabs tablet) 1 tabs 02/10/2015 Oral 10 mg 10 cyclobenzaprine( 5 mg=1 tabs, cyclobenzaprine Oral, BID, 10 mg oral PRN: as needed tablet) for spasm, 30 tabs, 0 Refill(s) 1 tabs 02/10/2015 Oral 15 mg 15 meloxicam(meloxi mg=1 tabs, cam 15 mg oral Oral, Daily, tablet) 30 tabs, 0 Refill(s) 1 tabs 12/06/2015 Oral 1 oxyCODONE-acetam 6 tabs, Oral, inophen(Percocet Once 5/325 oral tablet) 12/07/2015 IV Push propofol(propofo 6 200ml bottle, l) IV Push, As Indicated 2 mL 12/07/2015 IV Push 100 mcg fentaNYL(fentaNY 6 100 mcg=2 mL, L) IV Push, Once 1 tabs 12/07/2015 Oral 100 mg doxycycline(doxy 6 100 mg=1 tabs, cycline) Oral, Once 1 tabs 12/07/2015 Oral 1 oxyCODONE-acetam 6 tabs, Oral, inophen(Percocet Once 5/325 oral tablet) 1 tabs 12/07/2015 Oral 100 mg doxycycline(doxy 6 100 mg=1 tabs, cycline hyclate Oral, BID, for 100 mg oral 10 days, 20 tablet) tabs, 0 Refill(s) 1 tabs 12/07/2015 Oral 1 oxyCODONE-acetam 6 tabs, Oral, inophen(Percocet q6hr, PRN: as 5/325 oral needed for tablet) pain, 12 tabs, 0 Refill(s) 0.5 mL 04/21/2016 IV Push 25 mg 25 diphenhydrAMINE( 7 mg=0.5 mL, IV Benadryl) Push, Once 2 mL 04/21/2016 IV Push 10 mg 10 metoclopramide(R 7 mg=2 mL, IV eglan) Push, Once 1 mL 04/21/2016 IV Push 30 mg 30 ketorolac([place] 7 mg=1 mL, IV l) Push, Once 10 mL 04/21/2016 IV 1 g 1 cefTRIAXone(cefT 7 g=10 mL, IV, RIAXone) Once 1 tabs 04/21/2016 Oral 1 sulfamethoxazole 7 tabs, Oral, -trimethoprim(Ba BID, for 7 ctrim DS 800 days, 14 tabs, mg-160 mg oral 0 Refill(s) tablet) 1 tabs 04/21/2016 Oral 25 mg 25 promethazine(pro 7 mg=1 tabs, methazine 25 mg Oral, q6hr, oral tablet) for 4 days, PRN: as needed for motion sickness, 16 tabs, 0 Refill(s) Problems Date Dx Attending Type Code Diagnosis Diagnosed By Coded 12/09/2015 Arben, Final L02.91 Cutaneous abscess, Suzan M unspecified 12/11/2015 Hu Howard Final F17.210 Nicotine dependence, cigarettes, uncomplicated 12/11/2015 Hu Howard Reason L02.11 Cutaneous abscess of neck 12/11/2015 Hu Howard Reason Z48.89 Encounter for other specified surgical aftercare 04/05/2016 DORIS ESCALONA, Ot M54.5 LOW BACK PAIN VILLARREAL R 04/05/2016 DORIS ESCALONA, Ot S39.012A STRAIN OF MUSCLE, VILLARREAL R FASCIA AND TENDON OF L 04/05/2016 DORIS ESCALONA, Ot X50.0XXA OVEREXERTION FROM VILLARREAL R STRENUOUS MOVEMENT OR 04/13/2016 DORIS ESCALONA, Ot M54.5 LOW BACK PAIN VILLARREAL R 04/13/2016 DORIS ESCALONA, Ot S39.012A STRAIN OF MUSCLE, VILLARREAL R FASCIA AND TENDON OF L 04/13/2016 DORIS ESCALONA, Ot X50.0XXA OVEREXERTION FROM VILLARREAL R STRENUOUS MOVEMENT OR 04/13/2016 DORIS ESCALONA, Ot M54.5 LOW BACK PAIN VILLARREAL R 04/13/2016 DORIS ESCALONA, Ot S39.012A STRAIN OF MUSCLE, VILLARREAL R FASCIA AND TENDON OF L 04/13/2016 DORIS ESCALONA, Ot X50.0XXA OVEREXERTION FROM VILLARREAL R STRENUOUS MOVEMENT OR 04/22/2016 Hu Howard Final F17.210 Nicotine dependence, cigarettes, uncomplicated 04/22/2016 Hu Howard Final G43.909 Migraine, unspecified, not intractable, without status migrainosus 04/22/2016 Hu Howard Final N39.0 Urinary tract infection, site not specified 04/22/2016 Hu Howard Reason R51 Headache 08/18/2016 AIDEE ESCALONA, E78.00 PURE BRETT HYPERCHOLESTEROLEMI A, UNSPECIFIED 08/18/2016 AIDEE ESCALONA, F17.210 NICOTINE BRETT DEPENDENCE, CIGARETTES, UNCOMPLICATED 08/18/2016 AIDEE ESCALONA, F32.9 MAJOR DEPRESSIVE BRETT DISORDER, SINGLE EPISODE, UNSPECIFIED 08/18/2016 AIDEE ESCALONA, F41.9 ANXIETY DISORDER, BRETT UNSPECIFIED 08/18/2016 AIDEE ESCALONA, K21.9 GASTRO-ESOPHAGEAL BRETT REFLUX DISEASE WITHOUT ESOPHAGITIS 08/18/2016 AIDEE ESCALONA, R00.1 BRADYCARDIA, BRETT UNSPECIFIED 08/18/2016 AIDEE ESCALONA, R07.89 OTHER CHEST PAIN BRETT 08/18/2016 AIDEE ESCALONA, Z59.8 OTHER PROBLEMS BRETT RELATED TO HOUSING AND ECONOMIC CIRCUMSTANCES 08/18/2016 AIDEE ESCALONA, Z63.79 OTHER STRESSFUL BRETT LIFE EVENTS AFFECTING FAMILY AND HOUSEHOLD 08/18/2016 AIDEE ESCALONA, Z87.440 PERSONAL HISTORY OF BRETT URINARY (TRACT) INFECTIONS 08/18/2016 AIDEE ESCALONA, Z91.5 PERSONAL HISTORY OF BRETT SELF-HARM Procedures Code Description [place] [address] Office or 12/09/2015 other outpatient visit for the evaluation and management of an established patient, which requires at least 2 of these 3 reza components: An expanded problem focused history; An expanded prob Results Test Result Range CHEM/HEM PROFILE-BEDSIDE - [...] 4.00-6.00 RED CELL DISTRIBUTION WIDTH 12.8 % 11.0-15.6 WHITE BLOOD CELL 10.9 k/cumm 5.0-10.0 HEMOGLOBIN 15.0 gm/dL 12.0-16.0 HEMATOCRIT 45.3 % 37.0-47.0 PLATELET COUNT 272 k/cumm 150-400 HEPATIC FUNCTION PANEL - 10/27/12 15:35 BILI UNCONJUGATED 0.1 mg/dL 0.0-0.7 AST/SGOT 18 Units/L 10-37 ALT/SGPT 36 Units/L < 66 TOTAL PROTEIN 7.7 gm/dL 6.4-8.2 ALBUMIN 3.8 gm/dL 3.4-5.0 BILI TOTAL 0.2 mg/dL 0.0-1.0 ALKALINE PHOSPHATASE TOTAL 93 Units/L 50-136 BILI CONJUGATED 0.0 mg/dL 0.0-0.3 LIPASE - [...] GRAVITY 1.010 1.015-1.025 UR PH 5.0 5.0-7.0 L100.0050 - 11/29/15 15:01 WBC - WHITE BLOOD COUNT 9.4 T/MM3 4.5-11.0 RED BLOOD COUNT 4.58 M/MM3 4.00-5.20 HGB - HEMOGLOBIN 14.4 GM/DL 12-16 HCT - HEMATOCRIT 42.8 % 36-46 MEAN CORPUSCULAR VOLUME 93.4 UM3 80-100 MEAN CORPUSCULAR HGB 31.4 UUG 26-34 MEAN CORPUSCULAR HGB CONC(MCHC 33.6 GM/DL 31-37 RDW STANDARD DEVIATION 42.6 FL 36.9-50.2 PLT - PLATELET COUNT 234 T/MM3 130-400 MEAN PLATELET VOLUME 9.5 UM3 9.4-12.4 NEUTROPHILS % (AUTO) 70.7 % 33-66 LYMPHOCYTES % (AUTO) 20.1 % 23-45 MONOCYTES % (AUTO) 6.9 % 0-9.0 EOSINOPHILS % (AUTO) 1.7 % 0-4 BASOPHILS % (AUTO) 0.4 % 0-2 IMMATURE GRANULOCYTE % (AUTO) 0.2 % 0.0-0.5 NEUTROPHILS # (AUTO) 6.6 T/MM3 1.8-7.7 LYMPHOCYTES # (AUTO) 1.9 T/MM3 1-4.8 MONOCYTES # (AUTO) 0.7 T/MM3 0-0.8 EOSINOPHILS # (AUTO) 0.2 T/MM3 0-0.5 BASOPHILS # (AUTO) 0.0 T/MM3 0-0.2 IMMATURE GRANULOCYTE # (AUTO) 0.02 T/MM3 0.00-0.03 L200.0020 - 11/29/15 15:01 ICTERUS < 2 0-7 HEMOLYSIS < 15 0-25 L200.3250 - 11/29/15 15:01 ACETAMINOPHEN < 10 UG/ML 10-30 L200.3300 - 11/29/15 15:01 SALICYLATE < 1.0 MG/DL 2-20 L200.3350 - 11/29/15 15:01 ETHANOL <10 MG/DL <10 L100.0050 - 08/17/16 09:50 WBC - WHITE BLOOD COUNT 7.0 T/MM3 4.5-11.0 RED BLOOD COUNT 4.65 M/MM3 4.00-5.20 HGB - HEMOGLOBIN 14.9 GM/DL 12-16 HCT - HEMATOCRIT 44.7 % 36-46 MEAN CORPUSCULAR VOLUME 96.1 UM3 80-100 MEAN CORPUSCULAR HGB 32.0 UUG 26-34 MEAN CORPUSCULAR HGB CONC(MCHC 33.3 GM/DL 31-37 RDW STANDARD DEVIATION 41.2 FL 36.9-50.2 PLT - PLATELET COUNT 258 T/MM3 130-400 MEAN PLATELET VOLUME 9.9 UM3 9.4-12.4 NEUTROPHILS % (AUTO) 57.1 % 33-66 LYMPHOCYTES % (AUTO) 31.2 % 23-45 MONOCYTES % (AUTO) 7.6 % 0-9.0 EOSINOPHILS % (AUTO) 3.4 % 0-4 BASOPHILS % (AUTO) 0.6 % 0-2 IMMATURE GRANULOCYTE % (AUTO) 0.1 % 0.0-0.5 NEUTROPHILS # (AUTO) 4.0 T/MM3 1.8-7.7 LYMPHOCYTES # (AUTO) 2.2 T/MM3 1-4.8 MONOCYTES # (AUTO) 0.5 T/MM3 0-0.8 EOSINOPHILS # (AUTO) 0.2 T/MM3 0-0.5 BASOPHILS # (AUTO) 0.0 T/MM3 0-0.2 IMMATURE GRANULOCYTE # (AUTO) 0.01 T/MM3 0.00-0.03 L200.1848 - 08/17/16 09:50 TROPONIN I < 0.012 ng/ml 0-0.12 L200.1880 - 08/17/16 09:50 PROBNP 167 PG/ML 0-175 L200.0020 - 08/17/16 09:50 ICTERUS < 2 0-7 HEMOLYSIS < 15 0-25 TURBIDITY < 20 0-20 SODIUM 146 MEQ/L 134-144 POTASSIUM 3.8 MEQ/L 3.6-5 CHLORIDE 106 MEQ/L 98-107 CO2 - CARBON DIOXIDE 27 MEQ/L 22-30 ANION GAP 13 MEQ/L 5-15 BLOOD UREA NITROGEN 11.0 MG/DL 7-17 CREATININE 0.9 MG/DL 0.7-1.2 BUN/CREATININE RATIO 12 RATIO 6-26 GLOMERULAR FILTRATION RATE 70 GLUCOSE 69 MG/DL 65-110 OSMOLALITY,CALCULATED 278 MOSM/KG 261-280 CALCIUM 9.6 MG/DL 8.4-10.2 BILIRUBIN,TOTAL 0.40 MG/DL 0.20-1.30 ALKALINE PHOSPHATASE 59 U/L 38-126 TOTAL PROTEIN 7.6 G/DL 6.3-8.2 ALBUMIN 4.5 G/DL 3.5-5.0 GLOBULIN 3.1 G/DL 2.4-3.6 ALBUMIN/GLOBULIN RATIO 1.5 RATIO 1.1-2.2 AST (SGOT) 18 U/L 14-36 ALT (SGPT) 37 U/L 9-52 L160.0105 - 08/17/16 09:50 INR 0.89 0.77-1.03 L160.0135 - 08/17/16 09:50 D-DIMER < 150 NG/ML 0-230 L200.3855 - 08/17/16 09:50 [id number] 2.42 MIU/L 0.47-4.68 L200.2000 - 08/17/16 09:50 MAGNESIUM 2.0 MG/DL 1.6-2.3 L600.0100 - 08/17/16 10:23 SPECIMEN TYPE, URINE VOIDED-NOT CC-MIDSTR COLOR,URINE YELLOW YELLOW TURBIDITY, URINE CLEAR CLEAR SPECIFIC GRAVITY,URINE <=1.005 1.015-1.025 PH, URINE - DIPSTICK 5.5 5.0-8.0 LEUKOCYTE ESTERASE ,URINE TRACE NEGATIVE NITRITE,URINE NEGATIVE NEGATIVE PROTEIN,URINE - DIPSTICK NEGATIVE NEGATIVE GLUCOSE, URINE - DIPSTICK NEGATIVE NEGATIVE KETONES,URINE - DIPSTICK NEGATIVE NEGATIVE UROBILINOGEN,URINE 0.2 EU/DL NORMAL BILIRUBIN,URINE - DIPSTICK NEGATIVE NEGATIVE BLOOD, URINE NEGATIVE NEGATIVE URINE MICRO MICROSCOPIC NOT IND. L200.1847 - 08/17/16 15:05 HEMOLYSIS < 15 0-25 TROPONIN I < 0.012 ng/ml 0-0.12 L200.1847 - 08/17/16 20:56 HEMOLYSIS < 15 0-25 TROPONIN I < 0.012 ng/ml 0-0.12 L200.184708/18/16 03:15 HEMOLYSIS < 15 0-25 TROPONIN I < 0.012 ng/ml 0-0.12 Encounters ACCT No. Visit Discharge Status Pt. Type Provider Facility Loc./Unit Complaint Date/Time [id number] 10/27/2012 10/27/2012 DIS Outpatien Niki [id number] 92 18:30:00 18:30:00 obey ESCALONA, [facility] [id number] 12/09/2015 12/09/2015 DIS Outpatien [place] Via [facility] LOOK AT 54 18:24:00 23:59:00 Suzan barnhart [facility] REPLACE BANDAGES [id number] 02/13/2015 02/13/2015 DIS Outpatien Nunez, Via [facility] 3 DAY RCK 84 15:27:00 23:59:00 obey Vásquez [facility] TEAM A Clinic EMPL DOI 11 10 LOWER BACK STRAIN [id number] 02/10/2015 02/10/2015 DIS Outpatien Nunez, Via [facility] TEAM 91 12:22:00 23:59:00 obey Vásquez EMPLOYEM A Clinic DOI 11 10 LOWER BACK STRAIN [id number] 03/18/2014 03/18/2014 DIS Outpatien Triston, Via [facility] wkc/nitin 45 11:05:00 23:59:00 obey Vásquez back pain Clinic [id number] 03/10/2014 03/10/2014 DIS Outpatien Triston, Via [facility] ck on wkc 41 09:57:00 23:59:00 t Live Vásquez Clinic [id number] 03/06/2014 03/06/2014 DIS Outpatien Teck, Via [facility] RCK TO 73 13:21:00 23:59:00 obey Vásquez RETURN TO Clinic WORK/RESCA RE [facility] 02/24 [id number] 03/04/2014 03/04/2014 DIS Outpatien Teck, Via [facility] New DOC /contin 42 15:44:00 23:59:00 obey Vásquez uation of Clinic work comp inj for [facility], 02/24/14/n pankaj [id number] 02/24/2014 02/24/2014 DIS Outpatien Triston, Via [facility] wk/back 82 10:00:00 23:59:00 obey Vásquez pain Clinic [id number] 11/13/2014 Document 28 14:28:00 Registrat ion [id number] 11/13/2014 Document 86 14:23:00 Registrat ion [id number] 05/12/2014 Document 27 08:39:00 Registrat ion [id number] 08/17/2016 08/18/2016 DIS Inpatient [facility] 16 11:09:00 12:44:00 [facility] [id number] 01/04/2016 01/04/2016 DIS Emergency [facility] ED 95 21:13:00 23:07:00 , [facility] [id number] 12/09/2015 12/09/2015 DIS Emergency [facility] ED 09 17:59:00 18:15:00 MD [facility] [id number] 11/29/2015 11/29/2015 DIS Emergency [facility] ED 72 13:51:00 17:05:00 MD DENISSE [facility] [id number] 10/22/2015 10/22/2015 DIS Emergency MAY [facility] ED 08 12:15:00 14:13:00 [facility] [id number] 10/14/2015 10/14/2015 DIS Emergency [facility] ED 60 09:47:00 10:53:00 MD DENISSE [facility] [id number] 10/09/2015 Document 48 15:15:00 Registrat ion [id number] 10/09/2015 Document 17 15:15:00 Registrat ion [id number] 10/09/2015 Document 70 15:15:00 Registrat ion [id number] 10/09/2015 Document 53 15:15:00 Registrat ion [id number] 10/09/2015 Document 71 15:15:00 Registrat ion [id number] 10/09/2015 Document 55 15:15:00 Registrat ion [id number] 10/09/2015 Document 24 15:15:00 Registrat ion [id number] 10/09/2015 Document 32 15:15:00 Registrat ion [id number] 10/09/2015 Document 65 15:15:00 Registrat ion [id number] 10/09/2015 Document 69 15:15:00 Registrat ion [id number] 10/09/2015 Document 68 15:15:00 Registrat ion [id number] 10/09/2015 Document 73 15:15:00 Registrat ion [id number] 10/09/2015 Document 55 15:15:00 Registrat ion [id number] 10/09/2015 Document 42 15:14:00 Registrat ion [id number] 10/09/2015 Document 66 15:14:00 Registrat ion [id number] 10/09/2015 Document 59 15:14:00 Registrat ion [id number] 10/09/2015 Document 49 15:14:00 Registrat ion [id number] 10/09/2015 Document 10 15:14:00 Registrat ion [id number] 10/09/2015 Document 39 15:14:00 Registrat ion [id number] 10/09/2015 Document 61 15:14:00 Registrat ion [id number] 10/09/2015 Document 92 15:14:00 Registrat ion [id number] 10/09/2015 Document 19 15:14:00 Registrat ion [id number] 10/09/2015 Document 72 15:14:00 Registrat ion [id number] 09/16/2015 Document 22 16:04:00 Registrat ion [id number] 09/16/2015 Document 57 15:06:00 Registrat ion [id number] 09/14/2015 Document 24 13:49:00 Registrat ion [id number] 04/21/2016 04/21/2016 DIS Emergency Hu [facility] ED dizziness 54 17:08:00 21:45:00 [facility] [place] [id number] 12/07/2015 12/07/2015 DIS Emergency Hu [facility] ED neck pain 06 14:48:00 16:12:00 [facility] [id number] 12/06/2015 12/07/2015 DIS Emergency Hu,, [facility] mass on 96 22:15:00 01:58:00 [facility] [id number] 04/22/2016 Document 1547 05:15:47 Registrat ion [id number] 12/07/2015 Document 1548 05:15:48 Registrat ion [id number] 02/11/2015 Document 1609 05:16:09 Registrat ion [id number] 01/21/2015 Document 4921 10:49:21 Registrat ion [id number] 01/21/2015 Document 3858 10:38:58 Registrat ion [id number] 01/21/2015 Document 3132 10:31:32 Registrat ion [id number] 01/21/2015 Document 1852 09:18:52 Registrat ion [id number] 04/05/2016 04/05/2016 DIS Emergency [facility] ED 33 19:33:00 21:43:00 , [facility]
--- NOTE | 2017-11-14 10:31 | XRay Report ---
INDICATION: shortness of air, cough PROCEDURE: CHEST 2-VIEWS UPRIGHT (PA & LAT) Encounter: Initial COMPARISON: August 17, 2016 FINDINGS: The lungs are clear without evidence of focal abnormal airspace opacity. There is no pleural effusion or pneumothorax. The heart size, mediastinal contours and pulmonary vascularity are within normal limits. There is no significant skeletal abnormality. IMPRESSION: No acute cardiopulmonary disease. .
[2017-11-14 14:18] VITALS: BMI 26.5
[2017-11-14] MEDS: ENOXAPARIN 40 MG/0.4 ML INJECTION SQ SCH (15:12)
[2017-11-14] MEDS ORDERED: NICOTINE PATCH REMOVAL TD SCH (15:30)
[2017-11-14] MEDS: NICOTINE 21 MG PATCH TD SCH (15:43)
--- NOTE | 2017-11-14 16:05 | Cardiology History & Physical ---
History of Present Illness Chief complaint: dizziness, lightheadedness, fainting HPI: Carey is a 42 year old female who is known to Dr. Jacobs with a history of bradycardia, who wore a Holter monitor in August of 2016 without recording arrhythmia. She presented to the ED today with reported dizziness, lightheadedness, and fainting. Her HR on telemetry was 40s and as low as 38, she was evaluated and I was contacted for admission in observation in the care of Dr. Jacobs. The patient initially declined and left the hospital AMA, only to call to our office and ask if she could still be admitted. She is seen in her room on the Surgical floor, surrounded by her family. She denies recent illness, fever, chills, sore throat, cough. She denies chest pain or dyspnea. States she has had some emesis. Review of Systems - Constitutional Constitutional: Present: as per HPI - EENMT Eyes: Absent: change in vision Balance: Absent: vertigo Mouth/Throat: Present: as per HPI - Cardiovascular Cardiovascular: Present: syncope. Absent: chest pain, palpitations, dyspnea on exertion, orthopnea, edema, heart murmur Rhythm: Absent: abnormal rhythm Vascular: Absent: pedal edema - Respiratory Respiratory: Present: as per HPI - Gastrointestinal Gastrointestinal: Present: as per HPI. Absent: diarrhea, nausea - Genitourinary Genitourinary: Absent: dysuria - Integumentary/Breasts Integumentary: Absent: rash - Neurological Neurological: Present: dizziness - Endocrine Endocrine: Absent: palpitations PFSH Patient Stated Medical History Angina Yes Myocardial Infarction Yes: reports 1 year ago Bronchitis Yes Ulcer Yes Hx Kidney Stones Yes Hx Urinary Tract Infection Yes Depression Yes Post Traumatic Stress Disorder Yes Family History: maternal grandmother - CAD, CVA - Social History Smoking status: Never smoker Substance use type: does not use Alcohol intake frequency: holidays/special occasions only Medications Home Medications Medication Instructions Recorded Confirmed Type Acetaminophen [Acetaminophen Extra 1,000 mg PO Q6H PRN 11/14/17 11/14/17 History Strength] Aspirin [Adult Aspirin] 81 mg PO DAILY PRN 11/14/17 11/14/17 History Allergies Allergy/AdvReac Type Severity Reaction Status Date / Time No Known Drug Allergies Allergy Unknown Verified 11/14/17 15:55 Exam Vital signs: Temperature 97.4 F 11/14/17 14:29 Pulse Rate 44 L 11/14/17 15:29 Respiratory Rate 20 11/14/17 14:49 Blood Pressure 140/78 H 11/14/17 14:29 Pulse Oximetry 98 11/14/17 14:49 - Constitutional no acute distress, cooperative - Routine HEENT Exam Head: Present: normocephalic ENT: Present: mucous membranes dry - Routine Neck Exam Absent: JVD, carotid bruit - Routine Chest/Breast/Axilla Exam Chest wall: Absent: tenderness - Routine Respiratory Exam Present: CTA bilaterally. Absent: dyspnea, rales, wheezes - Routine Cardiovascular Exam Present: S1, S2, no murmur, bradycardia - Routine Abdominal Exam Present: soft, non tender - Routine Extremities Exam Present: no edema - Routine Skin Exam Present: intact, dry, warm - Routine Neurological Exam Present: alert, oriented X3 - Routine Psychiatric Exam Present: normal affect, normal thought process Results 11/15/17 06:18 11/15/17 06:18 Cardiac Enzymes 11/14/17 Range/Units 09:58 AST 14 (14-36) U/L Troponin I < 0.012 (0-0.12) ng/ml CBC 11/14/17 Range/Units 09:58 WBC 6.8 (4.5-11.0) T/MM3 RBC 4.26 (4.00-5.20) M/MM3 Hgb 13.5 (12-16) GM/DL Hct 40.6 (36-46) % Plt Count 257 (130-400) T/MM3 Comprehensive Metabolic Panel 11/14/17 Range/Units 09:58 Sodium 147 H (136-146) MEQ/L Potassium 3.7 (3.6-5) MEQ/L Chloride 106 (98-107) MEQ/L Carbon Dioxide 30 (22-30) MEQ/L BUN 11.0 (7-17) MG/DL Creatinine 0.9 (0.7-1.2) mg/dL Glucose 72 (65-110) MG/DL Calcium 9.9 (8.4-10.2) MG/DL AST 14 (14-36) U/L ALT 12 (1-35) U/L Alkaline Phosphatase 51 (38-126) U/L Total Protein 7.0 (6.3-8.2) g/dL Albumin 4.2 (3.5-5.0) g/dL Intake and Output 11/14/17 11/14/17 11/14/17 06:59 14:59 22:59 Intake Total 1000 / 1000 Output Total 300 / 300 300 / 300 Balance 700 / 700 -300 / -300 Intake: IV 1000 / 1000 Ns 1,000 ml @ 1000 mls/hr IV . 1000 / 1000 Q1H ONE Rx#:[id number] Output: Urine 300 / 300 300 / 300 Other: Urine Appearance Clear Clear Urine Color Pale Pale Urine Odor Normal Normal Weight 184 lb 15.485 oz Patient Weight 11/15/17 06:59 Weight 184 lb 15.485 oz - Imaging and Cardiology Imaging & Cardiology Narrative: Date of Exam: 11/14/17 Ordering Provider: Manny Maldonado MD Type of Exam(s): XR chest 2V Reason for Exam(s): shortness of air, cough INDICATION: shortness of air, cough PROCEDURE: CHEST 2-VIEWS UPRIGHT (PA & LAT) Encounter: Initial COMPARISON: August 17, 2016 FINDINGS: The lungs are clear without evidence of focal abnormal airspace opacity. There is no pleural effusion or pneumothorax. The heart size, mediastinal contours and pulmonary vascularity are within normal limits. There is no significant skeletal abnormality. IMPRESSION: No acute cardiopulmonary disease. . 11/14/17 16:15 EKG interpretations - EKG EKG results cardiology: sinus rhythm EKG shows: bradycardia Hospital Course This is a general summary of the patient's hospital course. For more details refer to the complete medical record. Time spent with patient: 25 - 35 minutes Resuscitation Status: Full Code Assessment and Plan - Attestation Attestation Narrative: 11/17/17 16:41 Recommendation After examining the patient I agree with the above assessment. I am involved in the formulation of the patient's plan of care. - Assessment and Plan (1) Symptomatic bradycardia Status: Acute Associated with dizziness, lightheadedness and fainting - TSH, MAG WNL - continue to monitor cardiac telemetry for pauses or heart blocks - EKG in the AM - UDS positive for amphetamines, methamphetamines and Benzodiazepines (2) Nicotine dependence Status: Chronic Smokes 1-2 packs/ day - 21mg nicotine patch Q day
[2017-11-14] MEDS ORDERED: ACETAMINOPHEN 325 MG TABLET PO PRN (18:42)
[2017-11-14] MEDS ORDERED: LORazepam 1 MG TABLET PO PRN (20:08)
[2017-11-15] MEDS: NICOTINE 21 MG PATCH TD SCH (08:12)
[2017-11-15] MEDS: ENOXAPARIN 40 MG/0.4 ML INJECTION SQ SCH (08:12)
[2017-11-15 08:23] VITALS: BP 93/58; RESP 18; TEMP 98.2; O2SAT 96
[2017-11-15] MEDS ORDERED: NICOTINE PATCH REMOVAL TD SCH (09:00)
[2017-11-15 09:11] VITALS: PULSE 52
--- NOTE | 2017-11-15 12:04 | Discharge Summary ---
<Vidya Paulino - Last Filed: 11/15/17 11:59> Discharge Information Date of admission: 11/14/17 11:41 Anticipated date of discharge: 11/15/17 Attending Physician: Hood Jacobs MD Primary care physician: [facility] - Discharge Diagnosis (1) Symptomatic bradycardia Status: Acute (2) Nicotine dependence Status: Chronic Problems Reviewed?: Yes bradycardia - Laboratory Labs: 11/15/17 06:18 11/15/17 06:18 History of Present Illness HPI: Carey is a 42 year old female who is known to Dr. Jacobs with a history of bradycardia, who wore a Holter monitor in August of 2016 without recording arrhythmia. She presented to the ED today with reported dizziness, lightheadedness, and fainting. Her HR on telemetry was 40s and as low as 38, she was evaluated and I was contacted for admission in observation in the care of Dr. Jacobs. The patient initially declined and left the hospital AMA, only to call to our office and ask if she could still be admitted. She is seen in her room on the Surgical floor, surrounded by her family. She denies recent illness, fever, chills, sore throat, cough. She denies chest pain or dyspnea. States she has had some emesis. Hospital Course This is a general summary of the patient's hospital course. For more details refer to the complete medical record. Hospital course: Symptomatic bradycardia Current visit: Yes Status: Acute - Associated with dizziness, lightheadedness and fainting - TSH, MAG WNL - continue to monitor cardiac telemetry for pauses or heart blocks - EKG in the AM - UDS positive for amphetamines, methamphetamines and Benzodiazepines Nicotine dependence Current visit: Yes Status: Chronic - Smokes 1-2 packs/ day - 21mg nicotine patch Q day 11/15/17 No pauses or heart block seen on review of telemetry, lowest rate was 40. - No indication for a PPM insertion - Counseled on adverse effect of drug use, recommend cessation of illicit drug use - Recommend follow up with 30 day LENO monitor if symptoms persist following cessation of drug use. - Follow up with Dr. Jacobs in 2 weeks Time spent with patient: 25 - 35 minutes Resuscitation Status: Full Code Exam Vital signs: Temperature 98.2 F 11/15/17 08:00 Pulse Rate 52 L 11/15/17 08:00 Respiratory Rate 18 11/15/17 08:00 Blood Pressure 93/58 11/15/17 08:00 Pulse Oximetry 96 11/15/17 08:00 - Constitutional no acute distress, well nourished, cooperative - Routine HEENT Exam Head: Present: normocephalic ENT: Present: mucous membranes dry - Routine Chest/Breast/Axilla Exam Chest wall: Absent: tenderness - Routine Respiratory Exam Absent: accessory muscle use, dyspnea - Routine Cardiovascular Exam Present: RRR, S1, S2, bradycardia - Routine Abdominal Exam Present: soft - Routine Extremities Exam Present: no edema - Routine Skin Exam Present: intact, dry, warm - Routine Neurological Exam Present: alert, oriented X3 - Routine Psychiatric Exam Present: normal affect, normal thought process Results 11/15/17 06:18 11/15/17 06:18 CBC 11/15/17 Range/Units 06:18 WBC 6.7 (4.5-11.0) T/MM3 RBC 4.15 (4.00-5.20) M/MM3 Hgb 13.0 (12-16) GM/DL Hct 39.8 (36-46) % Plt Count 238 (130-400) T/MM3 Comprehensive Metabolic Panel 11/15/17 Range/Units 06:18 Sodium 146 (136-146) MEQ/L Potassium 3.9 (3.6-5) MEQ/L Chloride 110 H (98-107) MEQ/L Carbon Dioxide 28 (22-30) MEQ/L BUN 10.0 (7-17) MG/DL Creatinine 0.8 (0.7-1.2) mg/dL Glucose 95 (65-110) MG/DL Calcium 8.9 D (8.4-10.2) MG/DL Intake and Output 11/14/17 11/15/17 11/15/17 22:59 06:59 14:59 Intake Total 240 / 240 300 / 300 Output Total 300 / 300 200 / 200 Balance -60 / -60 300 / 300 -200 / -200 Intake: Oral 240 / 240 300 / 300 Output: Urine 300 / 300 200 / 200 Other: Urine Appearance Clear Clear Urine Color Pale Light [place] Urine Odor Normal Strong # Voids 1 1 - Imaging and Cardiology Imaging & Cardiology Narrative: Date of Exam: 11/14/17 Ordering Provider: Manny Maldonado MD Type of Exam(s): XR chest 2V Reason for Exam(s): shortness of air, cough INDICATION: shortness of air, cough PROCEDURE: CHEST 2-VIEWS UPRIGHT (PA & LAT) Encounter: Initial COMPARISON: August 17, 2016 FINDINGS: The lungs are clear without evidence of focal abnormal airspace opacity. There is no pleural effusion or pneumothorax. The heart size, mediastinal contours and pulmonary vascularity are within normal limits. There is no significant skeletal abnormality. IMPRESSION: No acute cardiopulmonary disease. . 11/15/17 11:59 Discharge Plan - Med Rec/Dispo Referrals/Follow Up: Hood Jacobs MD [Physician] - 11/29/17 2:50 pm [place] Instructions: Bradycardia (DC), Polysubstance Abuse (ED) Prescriptions: Continue Acetaminophen [Acetaminophen Extra Strength] 1,000 mg PO Q6H PRN PRN Reason: Pain Aspirin [Adult Aspirin] 81 mg PO DAILY PRN PRN Reason: Prn Orders - Disposition 01 Discharged Home, Self-Care - Dismissal Complete Discharge Instructions are:: Complete <Hood Jacobs - Last Filed: 11/20/17 14:26> Discharge Information Date of admission: 11/14/17 11:41 Attending Physician: Hood Jacobs MD Primary care physician: [facility] - Discharge Diagnosis (1) Symptomatic bradycardia Status: Acute (2) Nicotine dependence Status: Chronic - Laboratory Labs: 11/15/17 06:18 11/15/17 06:18 Hospital Course This is a general summary of the patient's hospital course. For more details refer to the complete medical record. Exam Vital signs: Temperature 98.2 F 11/15/17 08:00 Pulse Rate 52 L 11/15/17 08:00 Respiratory Rate 18 11/15/17 08:00 Blood Pressure 93/58 11/15/17 08:00 Pulse Oximetry 96 11/15/17 08:00 Results 11/15/17 06:18 11/15/17 06:18 Attestation Narriative - Attestation Attestation Narrative: 11/20/17 14:26 Recommendation After examining the patient I agree with the above assessment. I am involved in the formulation of the patient's plan of care.
--- NOTE | 2017-11-15 13:08 | Echocardiogram ---
DATE OF PROCEDURE November 14, 2017 This is a two-dimensional echo with spectral Doppler, color-flow and M-mode. It was obtained in a patient with bradycardia and dizziness. Left atrial dimension is normal. Left ventricle end-diastolic dimension is normal. Left ventricle wall thickness is normal. LV systolic function is at the lower limits of normal with ejection fraction of about 50%. Right atrium is normal. Right ventricle is normal. Aortic root dimension is normal. Mitral valve is morphologically normal with trace of mitral regurgitation. Aortic valve is a trileaflet structure with no stenosis or insufficiency. Tricuspid valve shows trace of tricuspid regurgitation with normal estimated pulmonary artery systolic pressure of 19. Pulmonary valve shows trace of pulmonary insufficiency. There is no pericardial effusion. IMPRESSION 1. LV function at the lower limits of normal with ejection fraction of about 50 %. 2. Trace of mitral regurgitation. 3. Trace of tricuspid regurgitation with normal estimated pulmonary artery systolic pressure of 19. 4. Trace of pulmonary insufficiency. MTDD
== END 2017-11-15 12:34 | disposition home or self-care (01) ==
LOC: ED 08:46 → EDHOLD 08:46 → SRG 13:59
PROVIDERS: ADMIT Internal Medicine Cardiovascular Disease; ATTEND Internal Medicine Cardiovascular Disease